=== PATIENT | male | born 1965 | race Caucasian/White ===

== ENCOUNTER 2021-01-07 02:31 | Emergency (ER) | payer SELFPAY ==
[2021-01-07 02:34] VITALS: BP 167/88; PULSE 110; RESP 18; TEMP 38; O2SAT 92; BMI 27.9
--- NOTE | 2021-01-07 02:38 | XR_ITS ---
WS: [id number] PORTABLE CHEST HISTORY: Central chest pain and fever. COMPARISON: None available. Lung volumes are decreased. Mild haziness in opacifications at the lung bases probably due to poor in spiration and atelectasis. No pleural effusion or pneumothorax. Cardiac size: Normal. Mediastinum/Aorta: Ectatic thoracic aorta. No osseous abnormality seen. XR/XR chest 1V portable [id number] IMPRESSION: 1. Poor pulmonary expansion with atelectasis at the lung bases. 2. Ectatic thoracic aorta.
--- NOTE | 2021-01-07 02:38 | ECG_ITS ---
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 Measurements Intervals [place] Rate: 102 P: 4 NC: 144 QRS: 12 QRSD: 85 T: 45 QT: 318 QTc: 414 Interpretive Statements SINUS TACHYCARDIA POSSIBLE LEFT ATRIAL ENLARGEMENT [-0.1mV P WAVE IN V1/V2] No previous ECG available for comparison Electronically Signed On 01-07-2021 17:22:36 CDT by Tammi Lang M.D. [id number] f
--- NOTE | 2021-01-07 02:40 | W.ED.CHESTPA ---
HPI - Chest Pain General: Chief Complaint: Chest Pain Stated Complaint: CP Time Seen by Provider: 01/07/21 02:38 Source: patient and EMS Mode of arrival: EMS Limitations: no limitations History of Present Illness: HPI narrative: 55-year-old male has a history of heart disease with stents placed back in 2012. Patient states that starting tonight roughly an hour to hour and a half ago he started having right-sided chest pain that was a pressure type pain with some shortness of breath. He states he had a cough over the last 1 to 2 days. EMS gave patient nitro and aspirin he states his pain is since resolved. He denies any worsening improving factors currently. He denies any fever. Associated symptoms: Deny abdominal pain, fever(s), nausea or vomiting Review of Systems Const: Denies: fever(s), chills, body aches or change in appetite Eyes: Denies: blurry vision or eye discomfort ENMT: Denies: throat pain or dental pain Card: Reports: chest pain Resp: Reports: non-productive cough GI: Denies: abdominal pain, nausea, vomiting or diarrhea : Denies: dysuria Musc: Denies: neck pain or back pain Skin/Breast: Denies: rash Neuro: Denies: headache(s) Psych: Denies: depression Socrates/Lymph: Denies: easy bruising All/Imm: Denies: urticaria Physical Exam Const: COMMON NORMALS: no acute distress, patient oriented x3 and healthy appearing HENMT: COMMON NORMALS: normocephalic and atraumatic HEAD & SCALP: normocephalic and atraumatic Eye: COMMON NORMALS: Equal, round and reactive pupils present and EOMs intact bilaterally PUPIL: Yes Equal, round and reactive pupils present Neck/C-Spine: COMMON NORMALS: full ROM and supple Chest: COMMONS NORMALS: normal inspection of the chest and normal palpation of entire chest wall Resp: COMMON NORMALS: normal respiratory effort, No retractions, No use of accessory muscles and clear to auscultation bilaterally AUSCULTATION: clear to auscultation bilaterally Cardio: COMMON NORMALS: regular rate, regular rhythm and No murmurs present (Cardio) RATE: regular rate RHYTHM: regular rhythm GI: COMMON NORMALS: Normal to inspection, nondistended, normoactive bowel sounds present, Soft to palpation, non-tender and no masses PALPATION: Yes Soft to palpation Extremity: COMMON NORMALS: normal to inspection and full ROM Neuro: COMMON NORMALS: patient oriented x3, moves all extremities and no focal motor deficits Psych: COMMON NORMALS: mental status grossly normal, Normal thought process present and cooperative THOUGHT PROCESS: Normal thought process present Skin: COMMON NORMALS: no rashes or lesions noted and no wounds GENERAL SKIN EXAM: no rashes or lesions noted Course Vital Signs: Vital signs: Vital Signs Temperature 100.4 F H 01/07/21 02:34 Pulse Rate 77 01/07/21 05:40 Respiratory Rate 22 H 01/07/21 05:40 Blood Pressure 130/80 01/07/21 05:40 Pulse Oximetry 93 01/07/21 05:40 MDM - Chest Pain MDM Narrative: Medical decision making narrative: Carlos presents with chest pains atypical in nature. Believe is likely from his upper respiratory infection and cough. His CT showed no signs of pneumonia. He refused a Covid test. Patient's repeat troponin here shows no acute abnormality has no signs of pulmonary embolism. He is requesting discharge. I feel he is stable for discharge. He is to follow-up his PCP in 3 to 4 days return to ER if worsening. He understands agrees to plan. Lab Data: Labs: Lab Results 01/07/21 01/07/21 01/07/21 Range/Units 02:47 02:47 02:47 WBC 11.9 H (4.0-10.0) 10^3/ uL RBC 4.85 (4.1-5.3) 10^6/u L Hgb 14.9 (11.7-16.6) g/dL Hct 44.3 (42.0-52.0) % MCV 91.3 (80-94) fL MCH 30.7 (28.0-34.0) pg MCHC 33.6 (30.0-36.0) g/dL RDW 12.6 (12.1-15.1) % Plt Count 328 (130-400) 10^3/c mm MPV 9.7 (7.4-10.4) fL Neut % (Auto) 81.8 % Lymph % (Auto) 8.5 % Gage % (Auto) 7.8 % Eos % (Auto) 0.6 % Baso % (Auto) 0.4 % Neut # (Auto) 9.77 H (1.8-7.7) 10^3/u L Lymph # (Auto) 1.0 (0.8-4.8) 10^3/u L Gage # (Auto) 0.9 (0.2-0.9) 10^3/u L Eos # (Auto) 0.1 (0.0-0.8) 10^3/u L Baso # (Auto) 0.1 (0.0-0.1) 10^3/u L Nucleated RBC % (a uto) 0 % Nucleated RBCs # 0.0 /100WBC D-Dimer 3.44 H (0-0.59) ug/mIFE U Sodium 133 L (136-145) mmol/L Potassium 4.0 (3.5-5.1) mmol/L Chloride 98 (98-107) mmol/L Carbon Dioxide 23 (22-29) mmol/L Anion Gap 16.0 (5-19) BUN 13 (6-20) mg/dL Creatinine 0.7 (0.7-1.2) mg/dL GFR Calculation 116.7 (90-130) mL/min Glucose 159 H (65-115) mg/dL Calculated Osmolal ity 279 L (285-295) mOsm/k g Calcium 8.9 (8.5-10.5) mg/dL Total Bilirubin 0.7 (0.15-1.2) mg/dL AST 35 (0-40) U/L ALT 46 H (0-41) U/L Alkaline Phosphata se 50 (40-130) IU/L Troponin T Baselin e (0-15) ng/L Troponin T 120 Min [place] (0-15) ng/L Delta Troponin T (0-10) ABS# NT-Pro-B Natriuret Pep 121 (0-125) pg/mL Total Protein 5.9 L (6.6-8.7) g/dL Albumin 3.6 (3.5-5.2) g/dL Globulin 2.3 (1.3-4.6) g/dL 01/07/21 01/07/21 Range/Units 02:47 04:45 WBC (4.0-10.0) 10^3/ uL RBC (4.1-5.3) 10^6/u L Hgb (11.7-16.6) g/dL Hct (42.0-52.0) % MCV (80-94) fL MCH (28.0-34.0) pg MCHC (30.0-36.0) g/dL RDW (12.1-15.1) % Plt Count (130-400) 10^3/c mm MPV (7.4-10.4) fL Neut % (Auto) % Lymph % (Auto) % Gage % (Auto) % Eos % (Auto) % Baso % (Auto) % Neut # (Auto) (1.8-7.7) 10^3/u L Lymph # (Auto) (0.8-4.8) 10^3/u L Gage # (Auto) (0.2-0.9) 10^3/u L Eos # (Auto) (0.0-0.8) 10^3/u L Baso # (Auto) (0.0-0.1) 10^3/u L Nucleated RBC % (a uto) % Nucleated RBCs # /100WBC D-Dimer (0-0.59) ug/mIFE U Sodium (136-145) mmol/L Potassium (3.5-5.1) mmol/L Chloride (98-107) mmol/L Carbon Dioxide (22-29) mmol/L Anion Gap (5-19) BUN (6-20) mg/dL Creatinine (0.7-1.2) mg/dL GFR Calculation (90-130) mL/min Glucose (65-115) mg/dL Calculated Osmolal ity (285-295) mOsm/k g Calcium (8.5-10.5) mg/dL Total Bilirubin (0.15-1.2) mg/dL AST (0-40) U/L ALT (0-41) U/L Alkaline Phosphata se (40-130) IU/L Troponin T Baselin e 18 H (0-15) ng/L Troponin T 120 Min [place] 13.08 (0-15) ng/L Delta Troponin T -4.92 L (0-10) ABS# NT-Pro-B Natriuret Pep (0-125) pg/mL Total Protein (6.6-8.7) g/dL Albumin (3.5-5.2) g/dL Globulin (1.3-4.6) g/dL Imaging Data^: CT Chest: Attestation: I personally reviewed and interpreted this imaging study as follows: Radiologist's impression: [employer] [place] [address] CT Scan Report Signed Patient: Carlos Anne Unit #: [id number] : 1965 Age/Sex: 55 / M ADM Date: 01/07/21 Loc: ER Room/Bed: Attending Dr: Ordering Provider/Ordering MD: Gala Pickett MD Date of Service: 01/07/21 Procedure(s): CT angio chest PE protcl [id number] Accession Number(s): [id number] Report Number: [id number] PROCEDURE INFORMATION: Exam: CT Angiography Chest With Contrast Exam date and time: 01/07/2021 3:16 AM Age: 55 years old Clinical indication: Pain and abnormal findings; Abnormal diagnostic tests; Elevated d-dimer; Shortness of breath; Prior surgery; Surgery type: Cardiac stent; Patient HX: Central chest pressure with SOB and elevated d dimer. ; Additional info: RO pe TECHNIQUE: Imaging protocol: Computed tomographic angiography of the chest with contrast. 3D rendering (Not supervised by radiologist): MIP and/or 3D reconstructed images were created by the technologist. Radiation optimization: All CT scans at this facility use at least one of these dose optimization techniques: automated exposure control; mA and/or kV adjustment per patient size (includes targeted exams where dose is matched to clinical indication); or iterative reconstruction. Contrast material: OMNI 350; Contrast volume: 75 ml; Contrast route: INTRAVENOUS (IV); COMPARISON: CR XR chest 1V portable [id number] 01/07/2021 2:44 AM RADIATION DOSE METRICS: Total DLP (mGy-cm): 875.78 FINDINGS: Pulmonary arteries: Normal. No pulmonary emboli. Aorta: Ectatic ascending aorta measuring 3.8 cm in diameter. Lungs: There is patchy enhancing atelectasis in the right lung base, with elevation of the right hemidiaphragm. No consolidation identified. Pleural spaces: Unremarkable. No pneumothorax. No pleural effusion. Heart: Normal heart size. Coronary atherosclerotic calcifications seen. Trace pericardial effusion noted. Lymph nodes: Unremarkable. No enlarged lymph nodes. Bones/joints: Unremarkable. No acute fracture. Soft tissues: Unremarkable. CT/CT angio chest PE protcl [id number] IMPRESSION: 1. No pulmonary embolus or other acute pathology in the chest. 2. Ectatic ascending aorta. EKG Data^: EKG 1: Attestation: I personally reviewed and interpreted this EKG as follows: EKG interpretation date: 01/07/21 EKG interpretation time: 02:40 Interpretation: sinus tach hr [address] or t wave abnormalities qrs 85 qtc 376 Discharge Plan Discharge Patient Disposition: Home Clinical Impression: Upper respiratory infection Qualifiers: URI type: unspecified URI Qualified Code(s): J06.9 - Acute upper respiratory infection, unspecified Chest pain Qualifiers: Chest pain type: unspecified Qualified Code(s): R07.9 - Chest pain, unspecified Condition: Stable Discharge Orders: Discharge ED (Routine); Ordered 01/07/21 Ordered By: Gala Pickett Referrals: Shailesh Flores M.D [Physician] - 1-3 days Discharge Diet: Advance as tolerated Discharge Activity: Resume usual activity Patient Instructions: Opioid Safety Coding Level of Care Code ED Internet Marketing Consultant for Chg Fwd Exam Comprehensive
[2021-01-07 02:46] VITALS: BP 145/84; PULSE 95; RESP 30; O2SAT 91
[2021-01-07 02:50] VITALS: PULSE 102
[2021-01-07 02:55] LABS: Basophils # 0.1 10^3/uL (0.0-0.1); Basophils % 0.4 %; Eosinophils # 0.1 10^3/uL (0.0-0.8); Eosinophils % 0.6 %; Hematocrit 44.3 % (42.0-52.0); Hemoglobin 14.9 g/dL (11.7-16.6); Lymphocytes % 8.5 %; Mean Corpuscular HGB Conc 33.6 g/dL (30.0-36.0); Mean Corpuscular Hemoglobin 30.7 pg (28.0-34.0); Mean Corpuscular Volume 91.3 fL (80-94); Mean Platelet Volume 9.7 fL (7.4-10.4); Monocytes # 0.9 10^3/uL (0.2-0.9); Monocytes % 7.8 %; Neutrophils # 9.77 10^3/uL (1.8-7.7); Neutrophils % 81.8 %; Nucleated Red Blood Cells % 0 %; Platelet Count 328 10^3/cmm (130-400); Red Blood Count 4.85 10^6/uL (4.1-5.3); Red Cell Distribution Width 12.6 % (12.1-15.1); White Blood Count 11.9 10^3/uL (4.0-10.0)
[2021-01-07] MEDS: acetaminophen 500 mg Tablet 1000 MG PO (03:01)
--- NOTE | 2021-01-07 03:05 | PC.NURSE ---
patient refused covid and flu swabs at this time
[2021-01-07 03:11] LABS: Troponin(5th) Baseline 18 ng/L (0-15)
[2021-01-07 03:12] LABS: D Dimer 3.44 ug/mIFEU (0-0.59)
--- NOTE | 2021-01-07 03:13 | CTR_ITS ---
PROCEDURE INFORMATION: Exam: CT Angiography Chest With Contrast Exam date and time: 01/07/2021 3:16 AM Age: 55 years old Clinical indication: Pain and abnormal findings; Abnormal diagnostic tests; Elevated d-dimer; Shortness of breath; Prior surgery; Surgery type: Cardiac stent; Patient HX: Central chest pressure with SOB and elevated d dimer. ; Additional info: RO pe TECHNIQUE: Imaging protocol: Computed tomographic angiography of the chest with contrast. 3D rendering (Not supervised by radiologist): MIP and/or 3D reconstructed images were created by the technologist. Radiation optimization: All CT scans at this facility use at least one of these dose optimization techniques: automated exposure control; mA and/or kV adjustment per patient size (includes targeted exams where dose is matched to clinical indication); or iterative reconstruction. Contrast material: OMNI 350; Contrast volume: 75 ml; Contrast route: INTRAVENOUS (IV); COMPARISON: CR XR chest 1V portable [id number] 01/07/2021 2:44 AM RADIATION DOSE METRICS: Total DLP (mGy-cm): 875.78 FINDINGS: Pulmonary arteries: Normal. No pulmonary emboli. Aorta: Ectatic ascending aorta measuring 3.8 cm in diameter. Lungs: There is patchy enhancing atelectasis in the right lung base, with elevation of the right hemidiaphragm. No consolidation identified. Pleural spaces: Unremarkable. No pneumothorax. No pleural effusion. Heart: Normal heart size. Coronary atherosclerotic calcifications seen. Trace pericardial effusion noted. Lymph nodes: Unremarkable. No enlarged lymph nodes. Bones/joints: Unremarkable. No acute fracture. Soft tissues: Unremarkable. CT/CT angio chest PE protcl [id number] IMPRESSION: 1. No pulmonary embolus or other acute pathology in the chest. 2. Ectatic ascending aorta. Radiation Dose CTDIVOL = (mGy): DLP = 875.78 (mGy-cm)
[2021-01-07 03:19] LABS: Alanine Aminotransferase 46 U/L (0-41); Albumin Level 3.6 g/dL (3.5-5.2); Alkaline Phosphatase 50 IU/L (40-130); Aspartate Amino Transferase 35 U/L (0-40); Blood Urea Nitrogen 13 mg/dL (6-20); Calcium 8.9 mg/dL (8.5-10.5); Carbon Dioxide 23 mmol/L (22-29); Chloride 98 mmol/L (98-107); Globulin 2.3 g/dL (1.3-4.6); Glomerular Filtration Rate 116.7 mL/min (90-130); Glucose 159 mg/dL (65-115); NT Pro B Type Natriuretic Pept 121 pg/mL (0-125); Osmolality Calculated 279 mOsm/kg (285-295); Sodium 133 mmol/L (136-145); Total Bilirubin 0.7 mg/dL (0.15-1.2); Total Protein 5.9 g/dL (6.6-8.7)
[2021-01-07] MEDS: iohexol 350 mg/mL 100 mL Btl IV (03:39)
[2021-01-07 04:10] VITALS: BP 128/85; PULSE 88; O2SAT 92
[2021-01-07 04:56] VITALS: BP 123/75; PULSE 85; RESP 19; O2SAT 92
[2021-01-07 05:09] LABS: Troponin 5 2HR 13.08 ng/L (0-15)
[2021-01-07 05:40] VITALS: BP 130/80; PULSE 77; RESP 22; O2SAT 93
--- NOTE | 2021-01-07 12:36 | DCPLANNER ---
Addendum entered by Ness Hood 01/08/21 11:32: transaction advisory services manager called patient at phone number [phone] - unable to speak with patient, left a voicemail for patient to return residential case manager for appointment information. transaction advisory services manager called phone number [phone], unable to speak with anyone at this time, a voicemail was left for patient to return nurse outreach case manager phone call for appointment information. Original Note: transaction advisory services manager had message to schedule a follow up appointment for patient with heart care. transaction advisory services manager called heart care, spoke with Mae, a follow up appointment is scheduled for Monday, January 11, 2021 at 3:[address] Duarte. transaction advisory services manager called patient at phone number [phone], unable to speak with patient at this time, a voicemail was left for patient to return nurse outreach case manager phone call.
--- NOTE | 2021-01-15 14:22 | DCPLANNER ---
Patient had a follow up appointment scheduled for 01.11.21 with [facility] - patient did not attend appointment.
== END 2021-01-07 05:40 | disposition home or self-care (01) ==
PROVIDERS: Emergency Provider Emergency Medicine
DX: R07.9 Chest pain, unspecified (principal); J06.9 Acute upper respiratory infection, unspecified
CPT/HCPCS: 71045; 71275; 80053; 83880; 84484; 85025; 85378; 93005; 99284; Q9967

== ENCOUNTER 2023-01-12 22:06 | Inpatient (IN) | payer OTHER, SELFPAY ==
[2023-01-12 22:06] VITALS: BP 133/84; PULSE 119; RESP 20; TEMP 36.4; O2SAT 95; BMI 28.4
--- NOTE | 2023-01-12 22:09 | ECG_ITS ---
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 Measurements Intervals [place] Rate: 60 P: -13 VT: 147 QRS: 106 QRSD: 102 T: 139 QT: 395 QTc: 396 Interpretive Statements SINUS RHYTHM RIGHT AXIS DEVIATION [QRS AXIS > 100] ST DEPRESSION, CONSIDER SUBENDOCARDIAL INJURY [0.1+ mV ST DEPRESSION] Compared to ECG 01/07/2021 02:40:15 Right-axis deviation now present ST (T wave) deviation now present Sinus tachycardia no longer present Electronically Signed On 01-12-2023 23:38:32 CDT by Shailesh Flores M.D. [id number]
--- NOTE | 2023-01-12 22:14 | XACV_ITS ---
Exam Room: ED.ROOM Ht: 178 cm Wt: 90 kg BSA: 2.12 m2 Gender: Male : 1965 Exam Priority: Routine Indication(s): - ST changes Procedure(s): Procedure Description: Diagnostic procedure Procedure Description: PCI procedure Procedure Description: Left Heart Catheterization Procedure Description: Left ventriculography Procedure Description: Drug Eluting Coronary Stent Procedure Description: PTCA Procedure Description: Cutting Balloon Procedure Description: Miscellaneous Procedure Description: ACT Procedure Description: Coronary Angiography Diagnostic Cath Status: Emergency Diagnostic Findings * INDICATION: 57 year old male with past medical history of hypertension, coronary artery disease has presented with 4 to 5 hours of chest pain. He says it is severe and substernal. According to patient he has been having on and off chest discomfort episodes for the last 4 to 5 days. However today evening was constant and severe. EKG shows inferior leads ST elevations. Cardiac label stamper has been emergently activated. * Left Anterior Descending has mild to moderate luminal irregularities. * Mid Right Coronary Artery to Distal Right Coronary Artery: Total thrombotic occlusion, FABIENNE 0 flow. This is culprit vessel for ST elevation [place]. PLV branch has diffuse disease.. * Proximal Circumflex: severe, calcified 70-80% stenosis, FABIENNE: 3 flow. * Left Main has no disease. * Coronary angiography shows right dominance. PCI Status: Emergency PCI Indication: Immediate PCI for STEMI Interventional Findings * PROCEDURE DETAIL: We engaged RCA with JR4 guide catheter. 0.014 run-through guidewire was used to cross totally occluded segment of the mid to distal RCA and was put in distal vessel. We predilated the stenosis with 2.25 x 12 mm semicompliant balloon. This did not expand the vessel fully and it was calcified artery. We used 3.0 x 15 mm score Flex scoring balloon to dilate the lesion. This was followed by placement of 3.0 x 15 mm resolute [place] drug-eluting stent. At this time final angiogram was performed that showed excellent stent expansion, no residual stenosis and FABIENNE-3 flow. Guidewire and guide catheter were removed. Patient left the Hospice Nurse Practitioner in a stable condition. * Mid Right Coronary Artery to Distal Right Coronary Artery: 100% stenosis treated with a AB TREK 2.50X12 RX BALLOON, Scoreflex 3.0x15mm Scoring Balloon, MDT R HELADIO 3.0X15 ROSE, and Balloon. 0% residual stenosis, FABIENNE: 3 flow. Conclusions 1. Total thrombotic occlusion of mid to distal RCA 2. s/p successful revascularization with ROSE x1. 3. Severe 70 to 80% calcified stenosis of proximal left circumflex artery. 4. Mild left ventricular systolic dysfunction. Ejection fraction of 40%. 5. Mid Right Coronary Artery to Distal Right Coronary Artery was treated with a Balloon, Balloon, Drug Eluting Stent, and Balloon. Recommendations * Transfer to ICU. * Aggrastat drip for 6 hours. * Dual antiplatelet therapy with aspirin and Plavix for at least 1 year. * We will stage PCI of proximal left circumflex artery stenosis in 4 weeks.. * Outpatient cardiology follow-up in 2 weeks. Interventional RX Recommendation: PCI w/o planned CABG Diagnostic RX Recommendation: PCI w/o planned CABG Anticoagulation: Heparin Ventriculography Ejection Fraction: 40.0 % Pressures Phase:Rest AO : 90 / 66 ( 79 ) @ 6:21:26 PM 78 / 59 ( 69 ) @ 6:21:26 PM 80 / 63 ( 73 ) @ 6:21:26 PM 98 / 75 ( 87 ) @ 6:21:26 PM 154 / 81 ( 112 ) @ 6:21:26 PM 154 / 86 ( 116 ) @ 6:21:26 PM LV : 126 / -7 / 19 @ 6:21:26 PM 156 / 23 / 48 @ 6:21:26 PM 155 / 16 / 43 @ 6:21:26 PM Valves Phase:DefaultPhase AV : 8.0 @ 11:21:26 PM 8.0 @ 11:21:26 PM AV Mean Gradient: 11.0 @ 11:21:26 PM 11.0 @ 11:21:26 PM Clinical Evaluation EBL: 5mL-10mL Procedural Details Procedure Consent Obtained. Admit Source: Emergency department. Pre-Procedure Time Out. Identified patient by full name and date of as verbalized by the patient/guarantor. Does the consent match the physician's order: Yes. Accurate & Complete Informed Consent: Yes. Inpatient/Outpatient History & Physical on Chart: N/A Emergent. If H&P is completed, is and addenduem needed: N/A Emergent; If yes, is the addendum complete: N/A Emergent. Visualize and Verify Site with Patient/Guarantor: N/A. Relevant Radiology Images available: N/A. Pre-op teaching completed and patient verbalized understanding. The risks, benefits, and alternatives of sedation and/or procedure were discussed by physician. The patient agrees to continue. Procedure started. [facility] Clinical Fraility Score: 3: Managing Well. Hospice Nurse Practitioner Indications: New Onset Angina. Chest Pain Symptom Assessment: Typical Angina Symptoms. Correct patient, site and procedure confirmed by cath team. Current diagnosis: STEMI. PERRLA. Strong, equal hand calculator operator bilaterally. Lungs clear x 5 lobes. IV Site on Arrival: 20 gauge in the left anticubital. IV Fluids: 0.9% NaCl at KVO. 0 mL infused prior to label stamper. Pre Procedural Pulses: right radial was 2+. Pre Procedural Pulses: bilateral dorsalis pedis was 2+. Oxygen started at 2liters/min via nasal canula. right groin was prepped with chloroprep then draped in the usual sterile fashion. right radial was prepped with chloroprep then draped in the usual sterile fashion. Baseline sample Acquired. HR: 61 BPM. Physician notified. Physician arrived. Physician scrubbed in. Immediate Pre-Procedure Time Out. Correct Patient: Yes; Correct Procedure: Yes; Correct Site: Yes; Correct Patient Position: Yes; Correct Supplies: Yes; Dried Flammable Prep: Yes; Blood Products Available: N/A;. Lidocaine 1% infiltrated to the right radial. Arterial access obtained. 6 omani JR 4 guide catheter was inserted over the wire. Multiple views taken of right coronary artery. Runthrough guidewire was advanced through the guide catheter to lesion in the mid RCA. Balloon inserted to lesion in the mid RCA. Inflation number : 1 A AB TREK 2.50X12 RX BALLOON was prepped and advanced across the Mid RCA , then inflated to 12 KOFI for 0:06 seconds. Inflation number: 2 The AB TREK 2.50X12 RX BALLOON was reinflated across the Mid RCA, to 12 KOFI for 0:17 seconds. Inflation number: 3 The AB TREK 2.50X12 RX BALLOON was reinflated across the Mid RCA, to 14 KOFI for 0:17 seconds. Balloon out. Results checked. Balloon inserted to lesion in the mid RCA. Inflation number : 4 A Scoreflex 3.0x15mm Scoring Balloon was prepped and advanced across the Mid RCA , then inflated to 12 KOFI for 0:20 seconds. Inflation number: 5 The Scoreflex 3.0x15mm Scoring Balloon was reinflated across the Mid RCA, to 12 KOFI for 0:21 seconds. Balloon out. Results checked. Stent inserted to lesion in the mid RCA. Unable to cross lesion with stent. Intact stent removed over Runthrough wire. Guideliner inserted. Stent inserted to lesion in the mid RCA. Inflation Number : 6 A MDT R HELADIO 3.0X15 ROSE -Lot Number# [id number] Exp 01/05/2025 was prepped and advanced across the Mid RCA. The stent was deployed at 12 KOFI for 0:24 seconds. Results checked. Stent balloon out over wire. Inflation number : 1 A MDT NC EUPHORA RX [id number] BALLOON was prepped and advanced across the Dist RCA , then inflated to 8 KOFI for 0:12 seconds. Inflation number: 2 The MDT NC EUPHORA RX [id number] BALLOON was reinflated across the Dist RCA, to 8 KOFI for 0:09 seconds. Balloon inserted to lesion in the distal RCA. Inflation number: 7 The MDT NC EUPHORA RX [id number] BALLOON was reinflated across the Mid RCA, to 12 KOFI for 0:15 seconds. Inflation number: 8 The MDT NC EUPHORA RX [id number] BALLOON was reinflated across the Mid RCA, to 18 KOFI for 0:19 seconds. Balloon out. Results checked. Guideliner removed. Wire out. Guide catheter out. ACT drawn. Results 301 seconds. Therapeutic limits - pre-heparin administration 90-150 seconds and monitoring heparin during a vascular procedure >250 seconds. A 5 omani JL3.5 catheter in over wire. Multiple views taken of left coronary artery. Current Diagnosis : STEMI. PCI Indication : Immediate PCI for STEMI. Catheter out. A 5 omani Angled Pig catheter in over wire. EDP Sample taken: LV 126/-8,19; HR: 80 BPM; SpO2: 95%. LV gram performed in SZYMANSKI @ 10 mL/second for a total of 30 mL. EDP Sample taken: LV 156/23,48; HR: 85 BPM; SpO2: 95%. Pullback taken: LV 155/16,43; AO 154/81(112); Mean: 11mmHg, Peak to Peak: 8mmHg, SEP: 7sec/min; HR: 83 BPM; SpO2: 96%. Catheter out. A TR Band was successful obtaining hemostatsis at the Right Radial artery insertion site. Post Procedure: Pulses reassessed and unchanged. PERRLA. Strong, equal hand calculator operator bilaterally. No VTE prophylaxis required. Medication's Wasted: Nitro = 49.8 mg. Post-op diagnosis: Total Thrombotic Occlusion of RCA. Medication's Wasted: Other = Fentanyl 50 mcg. Medication's Wasted: Lidocaine 1% = 3 mL. Total IV fluids: 94 mL. PCI Indication: STEMI. Complications: none. Estimated blood loss: 5mL-10mL. Responsiveness - Normal response to verbal stimuli; alert and oriented, PERRLA. Airway - Unaffected, no intervention required; spontaneous ventilation. Circulation: W/N/L, pulses unchanged. Nausea/Vomiting: No. Procedure completed. Patient transferred by bed to ICU. Vital chart was stopped. Access Site Site: Right Radial artery Sheath Size: 6 Fr Hemostasis Method: TR Band Hemostasis Success: Successful Procedure Medications Start: 10:34 PM Stop: 10:34 PM Medication: Versed Amount: 1 mg Route: I.V. Start: 10:34 PM Stop: 10:34 PM Medication: Fentanyl Amount: 50 mcg Route: I.V. Start: 10:39 PM Stop: 10:39 PM Medication: Heparin Amount: 5000 units Route: I.V. Start: 10:41 PM Stop: 10:41 PM Medication: Versed Amount: 1 mg Route: I.V. Start: 10:57 PM Stop: 10:57 PM Medication: Heparin Amount: 1000 units Route: I.V. Start: 11:04 PM Stop: 11:04 PM Medication: Aggrastat 12.5 mg/250 mL Amount: 45 ml Route: I.V. bolus Start: 11:04 PM Stop: 11:04 PM Medication: Aggrastat 12.5 mg/250 mL Amount: 16.2 ml/hr Route: I.V. drip Start: 10:37 PM Stop: 10:37 PM Medication: Nitrogylcerin Amount: 200 mcg Route: I.A. Start: 11:19 PM Stop: 11:19 PM Medication: Plavix Amount: 300 mg Route: P.O. I, the attending physician, have reviewed and verified all procedure medications. Yes, all medications given per verbal order Report Signatures Finalized by Shailesh Flores MD on 01/25/2023 12:55 PM
[2023-01-12] MEDS: morphine 4 mg/mL SDV 1 mL IVP (22:16)
[2023-01-12] MEDS: ondansetron 2 mg/ML SDV 2 mL 4 MG IVP (22:16)
[2023-01-12 22:22] LABS: Basophils # 0.1 10^3/uL (0.0-0.1); Basophils % 1.1 %; Eosinophils # 0.4 10^3/uL (0.0-0.8); Eosinophils % 4.3 %; Hematocrit 44.1 % (42.0-52.0); Hemoglobin 15.2 g/dL (11.7-16.6); Lymphocytes # 3.1 10^3/uL (0.8-4.8); Lymphocytes % 36.4 %; Mean Corpuscular HGB Conc 34.5 g/dL (30.0-36.0); Mean Corpuscular Hemoglobin 31.4 pg (28.0-34.0); Mean Corpuscular Volume 91.1 fl (80-94); Mean Platelet Volume 9.8 fL (7.4-10.4); Monocytes # 1.2 10^3/uL (0.2-0.9); Monocytes % 13.7 %; Neutrophils # 3.75 10^3/uL (1.8-7.7); Nucleated Red Blood Cells % 0 %; Platelet Count 261 10^3/cmm (130-400); Red Blood Count 4.84 10^6/uL (4.1-5.3); White Blood Count 8.5 10^3/uL (4.0-10.0)
[2023-01-12] MEDS: heparin 5,000 unit/mL INJ 1 mL 4000 UNIT IVP (22:22)
[2023-01-12] MEDS: clopidogrel 300 mg Tablet PO (22:22)
[2023-01-12] MEDS: sodium chloride 0.9% 1,000 ML 999 ML IV (22:23)
--- NOTE | 2023-01-12 22:24 | PM.HP ---
Providers/Chief Complaint Admitting Physician: Shailesh Flores MD/ Interventional Cardiology Chief Complaint: STEMI History of Present Illness Carlos Anne is a 57 year old male with past medical history of hypertension, coronary artery disease has presented with 4 to 5 hours of chest pain. He says it is severe and substernal. According to patient he has been having on and off chest discomfort episodes for the last 4 to 5 days. However today evening was constant and severe. EKG shows inferior leads ST elevations. Cardiac lab tester has been emergently activated. Review of Systems Const: Denies: fever(s), chills, body aches or change in appetite Eyes: Denies: blurry vision or eye discomfort ENMT: Denies: throat pain or dental pain Card: Reports: chest pain Resp: Reports: dyspnea GI: Denies: abdominal pain, nausea, vomiting or diarrhea : Denies: dysuria Musc: Denies: neck pain or back pain Skin/Breast: Denies: rash Neuro: Denies: headache(s) Psych: Denies: depression Socrates/Lymph: Denies: easy bruising All/Imm: Denies: urticaria PFSH Acute PFSH: Medical History Coronary artery disease Social History Substance/Drug Use: never Vitals/I&O/Wt Last Vital Signs Temp 97.6 F 01/12/23 22:06 Pulse 119 H 01/12/23 22:06 Resp 20 H 01/12/23 22:06 BP 133/84 01/12/23 22:06 Pulse Ox 95 01/12/23 22:06 O2 Del Method 01/12/23 22:06 Weight last 48 hrs Weight 198 lb Physical Exam Narrative: GENERAL: Patient is alert, awake and oriented x3. [] NECK: No jugular vein distension. [] HEENT: No cyanosis. No icterus. No pallor. [] HEART: Regular S1 and S2. No murmur, rub or gallop. [] LUNGS: Clear to auscultate bilaterally. [] CENTRAL NERVOUS SYSTEM: Grossly nonfocal. [] EXTREMITIES: Lower extremities with no edema Data 01/12/23 22:15 01/12/23 22:15 A&P Assessment and plan (1) ST elevation myocardial infarction (STEMI): (2) Coronary artery disease: (3) Hypertension: Plan Patient presentation is consistent with inferior wall ST elevation AL. Cardiac Coupon And Bond Collection Clerk has been emergently activated and patient will undergo coronary angiogram. Aspirin and Plavix loaded. Heparin bolus given. We will need high intensity statin therapy. We will order echocardiogram Post procedure will go to ICU Attestations Medical Necessity Statement*: Care expected to cross 2 midnights. Coding Level of Care Code Acute Code for [facility] Diagnoses ST elevation myocardial infarction (STEMI) I21.3 Coronary artery disease I25.10 Hypertension I10
[2023-01-12] MEDS: sodium chloride 0.9% 500 ML 999 ML IV (22:25)
--- NOTE | 2023-01-12 22:26 | W.ED.CHESTPA ---
HPI - Chest Pain General: Chief Complaint: Chest Pain Stated Complaint: STEMI Time Seen by Provider: 01/12/23 22:08 Source: patient and EMS Mode of arrival: EMS Limitations: no limitations History of Present Illness: 57-year-old male has a history of coronary disease states he is having chest pain this evening take an aspirin at home he has had 3 nitro his pain is down to 5 out of 10 but still having some pain he had some dyspnea feeling nauseous no vomiting denies any fevers. Associated symptoms: Deny abdominal pain, dyspnea, fever(s), nausea or vomiting Review of Systems Const: Denies: fever(s), chills, body aches or change in appetite Eyes: Denies: blurry vision or eye discomfort ENMT: Denies: throat pain or dental pain Card: Reports: chest pain Resp: Denies: dyspnea GI: Denies: abdominal pain, nausea, vomiting or diarrhea : Denies: dysuria Musc: Denies: neck pain or back pain Skin/Breast: Denies: rash Neuro: Denies: headache(s) Psych: Denies: depression Socrates/Lymph: Denies: easy bruising All/Imm: Denies: urticaria PFSH ED PFSH: Medical History Coronary artery disease Social History (Updated 01/12/23 @ 22:27 by Gala Pickett MD) Substance/Drug Use: never Physical Exam Const: COMMON NORMALS: patient oriented x3 GENERAL APPEARANCE: ill appearing HENMT: COMMON NORMALS: normocephalic and atraumatic HEAD & SCALP: normocephalic and atraumatic Eye: COMMON NORMALS: Equal, round and reactive pupils present and EOMs intact bilaterally PUPIL: Yes Equal, round and reactive pupils present Neck/C-Spine: COMMON NORMALS: full ROM and supple Chest: COMMONS NORMALS: normal inspection of the chest and normal palpation of entire chest wall Resp: COMMON NORMALS: normal respiratory effort, No retractions, No use of accessory muscles and clear to auscultation bilaterally AUSCULTATION: clear to auscultation bilaterally Cardio: COMMON NORMALS: regular rate, regular rhythm and No murmurs present (Cardio) RATE: regular rate RHYTHM: regular rhythm GI: COMMON NORMALS: Normal to inspection, nondistended, normoactive bowel sounds present, Soft to palpation, non-tender and no masses PALPATION: Yes Soft to palpation Extremity: COMMON NORMALS: normal to inspection and full ROM Neuro: COMMON NORMALS: patient oriented x3, moves all extremities and no focal motor deficits Psych: COMMON NORMALS: mental status grossly normal, Normal thought process present and cooperative THOUGHT PROCESS: Normal thought process present Skin: COMMON NORMALS: no rashes or lesions noted and no wounds GENERAL SKIN EXAM: no rashes or lesions noted Course Vital Signs: Vital signs: Vital Signs Temperature 97.6 F 01/12/23 22:06 Pulse Rate 119 H 01/12/23 22:06 Respiratory Rate 20 H 01/12/23 22:06 Blood Pressure 133/84 01/12/23 22:06 Pulse Oximetry 95 01/12/23 22:06 Oxygen Delivery Me thod 01/12/23 22:06 MDM - Chest Pain Medical Decision Making Patient presents for chest pain EKG is concerning for STEMI STEMI was alerted in the field by EMS of spoke to Dr. Sarabia who is here and is gone take patient to the Tax Services Professional at this time Lab Data 01/12/23 22:15 01/12/23 22:15 Laboratory Results WBC 8.5 10^3/uL (4.0-10.0) 01/12/23 22:15 RBC 4.84 10^6/uL (4.1-5.3) 01/12/23 22:15 Hgb 15.2 g/dL (11.7-16.6) 01/12/23 22:15 Hct 44.1 % (42.0-52.0) 01/12/23 22:15 MCV 91.1 fl (80-94) 01/12/23 22:15 MCH 31.4 pg (28.0-34.0) 01/12/23 22:15 MCHC 34.5 g/dL (30.0-36.0) 01/12/23 22:15 RDW 12.0 % (12.1-15.1) L 01/12/23 22:15 Plt Count 261 10^3/cmm (130-400) 01/12/23 22:15 MPV 9.8 fL (7.4-10.4) 01/12/23 22:15 Neut % (Auto) 44.0 % 01/12/23 22:15 Lymph % (Auto) 36.4 % 01/12/23 22:15 Porter % (Auto) 13.7 % 01/12/23 22:15 Eos % (Auto) 4.3 % 01/12/23 22:15 Baso % (Auto) 1.1 % 01/12/23 22:15 Neut # (Auto) 3.75 10^3/uL (1.8-7.7) 01/12/23 22:15 Lymph # (Auto) 3.1 10^3/uL (0.8-4.8) 01/12/23 22:15 Porter # (Auto) 1.2 10^3/uL (0.2-0.9) H 01/12/23 22:15 Eos # (Auto) 0.4 10^3/uL (0.0-0.8) 01/12/23 22:15 Baso # (Auto) 0.1 10^3/uL (0.0-0.1) 01/12/23 22:15 Nucleated RBC % (auto) 0 % 01/12/23 22:15 Nucleated RBCs # 0.0 /100WBC 01/12/23 22:15 Discharge Plan Discharge Patient Disposition: Admitted As Inpatient Clinical Impression: ST elevation myocardial infarction (STEMI) Coding Level of Care Code ED E Commerce Specialist for Jessica Roberts
[2023-01-12 22:28] VITALS: BP 131/80; PULSE 54; RESP 14; O2SAT 94
[2023-01-12 22:41] LABS: INR 0.98 (0.8-1.2)
[2023-01-12 22:42] LABS: Partial Thromboplastin Time 23.7 SECONDS (23.9-36.7)
[2023-01-12 22:47] LABS: Alanine Aminotransferase 45 U/L (0-41); Albumin Level 3.4 g/dL (3.5-5.2); Alkaline Phosphatase 56 U/L (40-130); Anion Gap 14.7 (5-19); Aspartate Amino Transferase 32 U/L (0-40); Blood Urea Nitrogen 8 mg/dL (6-20); Calcium 9.4 mg/dL (8.5-10.5); Carbon Dioxide 24 mmol/L (22-29); Chloride 99 mmol/L (98-107); Globulin 2.7 g/dL (1.3-4.6); Glomerular Filtration Rate 99.3 mL/min (90-130); Glucose 212 mg/dL (65-115); Lipase 22 U/L (13-60); Osmolality Calculated 283 mOsm/kg (285-295); Potassium 3.7 mmol/L (3.5-5.1); Sodium 134 mmol/L (136-145); Total Bilirubin 0.3 mg/dL (0.15-1.2); Total Protein 6.1 g/dL (6.6-8.7)
[2023-01-12 22:50] LABS: Troponin(5th) Baseline 76 ng/L (0-15)
[2023-01-12 22:57] LABS: NT Pro B Type Natriuretic Pept 80 pg/mL (0-125)
--- NOTE | 2023-01-12 23:30 | PC.NURSE ---
Admitted to ICU room 12 from pathology laboratory aides teacher via wheelchair. TR band to right wrist with 14mL air. No bleeding or hematoma noted to Right radial heart cath insertion site. No reports of chest pain or discomfort. Placed on equipment monitor phototypesetting and continuous pulse ox monitor. V/S stable at present time. No family present.
[2023-01-12 23:45] VITALS: BP 129/82; PULSE 82; RESP 18; TEMP 36.5; O2SAT 93
[2023-01-12] MEDS: sodium chloride 0.9% 1,000 ML 100 ML IV (23:46)
[2023-01-12 23:54] LABS: Chol HDL Ratio 5.76 mg/dL (1.0-5.00); Cholesterol 167 mg/dL (0-200); Estmated Average Glucose 154; HDL Cholesterol 29 mg/dL (60-100); LDL Cholesterol Calculated 86 mg/dL (50-129); LDL HDL Ratio 2.97 RATIO (0.00-3.22); Triglycerides 258 mg/dL (0-150)
[2023-01-13] VITALS (33 sets, daily range): BP systolic 108–159; BP diastolic 68–94; PULSE 36–85; RESP 12–25; TEMP 36.5–36.8; O2SAT 90–94; BMI 28.3
[2023-01-13 00:42] LABS: Basophils % 0.5 %; Eosinophils # 0.1 10^3/uL (0.0-0.8); Eosinophils % 1.4 %; Hematocrit 46.2 % (42.0-52.0); Hemoglobin 15.5 g/dL (11.7-16.6); Lymphocytes # 1.3 10^3/uL (0.8-4.8); Lymphocytes % 15.6 %; Mean Corpuscular HGB Conc 33.5 g/dL (30.0-36.0); Mean Corpuscular Hemoglobin 31.5 pg (28.0-34.0); Mean Corpuscular Volume 93.9 fl (80-94); Mean Platelet Volume 9.9 fL (7.4-10.4); Monocytes # 0.6 10^3/uL (0.2-0.9); Monocytes % 7.5 %; Neutrophils # 6.21 10^3/uL (1.8-7.7); Neutrophils % 74.3 %; Nucleated Red Blood Cells % 0 %; Platelet Count 227 10^3/cmm (130-400); Red Blood Count 4.92 10^6/uL (4.1-5.3); White Blood Count 8.4 10^3/uL (4.0-10.0)
[2023-01-13 01:04] LABS: Anion Gap 15.3 (5-19); Blood Urea Nitrogen 8 mg/dL (6-20); Calcium 9.3 mg/dL (8.5-10.5); Carbon Dioxide 23 mmol/L (22-29); Chloride 98 mmol/L (98-107); Glomerular Filtration Rate 115.8 mL/min (90-130); Glucose 201 mg/dL (65-115); Osmolality Calculated 278 mOsm/kg (285-295); Potassium 4.3 mmol/L (3.5-5.1); Sodium 132 mmol/L (136-145)
[2023-01-13 01:26] LABS: Troponin 5 2HR 275.9 ng/L (0-15); Troponin 5 2HR Delta 199.9 ABS# (0-10)
--- NOTE | 2023-01-13 01:47 | PC.NURSE ---
0032 -- removed 2mL air from R radial TR band 0042 -- removed 2mL air from R radial TR band 0052 -- removed 2mL air from R radial TR band 0102 -- removed 2mL air from R radial TR band 0112 -- removed 2mL air from R radial TR band 0122 -- removed 2mL air form R radial TR band 0132 -- removed 2mL air from R radial TR band. All air removed from TR band, no bleeding or hematoma noted. 0145 -- Removed TR band from R wrist. No bleeding or hematoma. Band-aid placed over puncture site.
--- NOTE | 2023-01-13 02:08 | ECG_ITS ---
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 Measurements Intervals [place] Rate: 68 P: 53 NH: 191 QRS: 60 QRSD: 103 T: 61 QT: 372 QTc: 397 Interpretive Statements SINUS RHYTHM Compared to ECG 01/12/2023 22:09:48 Right-axis deviation no longer present ST (T wave) deviation no longer present Electronically Signed On 01-13-2023 21:37:02 CDT by Rex Heath M.D. [id number]
[2023-01-13 04:39] LABS: Troponin 5 6HR 489.7 ng/L (0-15); Troponin 5 6HR Delta 413.7 ng/L (0-12)
[2023-01-13] MEDS: aspirin 81 mg EC Tablet PO (08:59)
[2023-01-13] MEDS: clopidogrel 75 mg Tablet PO (08:59)
[2023-01-13] MEDS: lisinopril 10 mg Tablet PO (08:59)
--- NOTE | 2023-01-13 11:36 | P.PN_ITS ---
Subjective Subjective: Patient had total thrombotic occlusion of the mid to distal RCA and underwent successful revascularization with ROSE x1. Feeling well. No chest pain overnight. Echo shows normal LV systolic function. Vitals/I&O/Wt Last Vital Signs Temp 98.2 F 01/13/23 04:00 Pulse 59 L 01/13/23 10:00 Resp 15 01/13/23 07:00 BP 131/79 01/13/23 10:00 Pulse Ox 94 01/13/23 07:00 O2 Del Method 01/13/23 04:00 01/12/23 01/13/23 01/13/23 22:59 06:59 14:59 Intake Total 2850 / 2850 Balance 2850 / 2850 Weight last 48 hrs Weight 197 lb 4.8 oz Weight 198 lb Physical Exam Narrative: GENERAL: Patient is alert, awake and oriented x3. [] NECK: No jugular vein distension. [] HEENT: No cyanosis. No icterus. No pallor. [] HEART: Regular S1 and S2. No murmur, rub or gallop. [] LUNGS: Clear to auscultate bilaterally. [] CENTRAL NERVOUS SYSTEM: Grossly nonfocal. [] EXTREMITIES: Lower extremities with no edema Data 01/13/23 00:27 01/13/23 00:27 A&P Assessment and plan (1) ST elevation myocardial infarction (STEMI): (2) Coronary artery disease: (3) Hypertension: (4) Diabetes: Plan Patient underwent successful revascularization of mid to distal RCA with ROSE x1. Continue aspirin Plavix for at least 1 year. High intensity statin therapy. Lisinopril restarted. Echocardiogram shows normal LV systolic function. Patient's HbA1c is 7. He has diabetes. As outpatient will need initiation of diabetes medicines. If stays stable by tomorrow, will be discharged. Attestations Medical Necessity Statement*: Care expected to cross 2 midnights. Patient had presented last night with ST elevation MN and underwent successful revascularization with ROSE x1. Coding Level of Care Code Acute Code for [facility] Diagnoses ST elevation myocardial infarction (STEMI) I21.3 Coronary artery disease I25.10 Hypertension I10 Diabetes E11.9
[2023-01-13] MEDS: atorvastatin 40 mg Tablet 80 MG PO (21:13)
--- NOTE | 2023-01-13 23:31 | USCV_ITS ---
Carlos Anne Age: 57 Gender: M : 1965 Exam Date: 01/13/2023 02:24 Ordering Phys: Shailesh Flores M.D ([email or web address]) Technologist: SEBASTIAN Exam Location: [facility] [place] Indication: post STEMI, hx CAD, s/p cardiac stenting tonight, previous stent 2012. BP: 131 / 80 HR: 63 Rhythm: Sinus Technical Quality: Adequate MEASUREMENTS (Male / Female) Normal Values 2D ECHO LV Diastolic Diameter PLAX 4.0 cm 4.2 - 5.9 / 3.9 - 5.3 cm LV Systolic Diameter PLAX 2.4 cm IVS Diastolic Thickness 1.3 cm 0.6 - 1.0 / 0.6 - 0.9 cm IVS Systolic Thickness 2.4 cm LVPW Diastolic Thickness 1.5 cm 0.6 - 1.0 / 0.6 - 0.9 cm LVPW Systolic Thickness 1.2 cm LVOT Diameter 1.9 cm LV Ejection Fraction 2D Teich 73.0 % LV Ejection Fraction MOD 2C 57.1 % LV Ejection Fraction 2C AL 57.1 % LA Diameter 3.9 cm LA Width 3.6 cm LA Height 4.2 cm RA Width 2.8 cm RA Height 4.1 cm Aorta at Sinotubular Diameter 3.1 cm IVC Diameter 1.6 cm M-MODE Aortic Annulus Diameter 3.0 cm LA Ao Ratio MM 1.2 MV E Point Septal Separation 0.3 cm DOPPLER AV Peak Velocity 134.0 cm/s LVOT Peak Velocity 121.0 cm/s AV Area Cont Eq vti 2.6 cm squared AV Area Cont Eq pk 2.5 cm squared MV Area PHT 3.5 cm squared Mitral E to A Ratio 0.8 MV E' Velocity 32.5 cm/s Mitral E to MV E' Ratio 7.8 Mitral E to LV E' Lateral Ratio 6.8 Mitral E to LV E' Septal Ratio 9.2 TR Peak Velocity 279.0 cm/s TR Peak Gradient 31.1 mmHg TV Peak E Velocity 38.0 cm/s Right Atrial Pressure 5.0 mmHg Pulmonary Artery Systolic Pressu 36.1 mmHg PV Peak Velocity 74.0 cm/s RV Acceleration Time 0.1 s RV Ejection Time 0.3 s RV AcT/ET 0.3 FINDINGS Left Ventricle Left ventricle is normal in size. LV systolic function is normal with EF of 50 to 55%. No regional wall motion abnormalities are seen. Grade 1 diastolic dysfunction Right Ventricle Normal in size and function Right Atrium Normal in size Left Atrium Normal in size Mitral Valve Structurally normal mitral valve. Aortic Valve Thickened aortic valve. Moderate aortic regurgitation. No significant stenosis Tricuspid Valve Mild tricuspid regurgitation. Insufficient TR jet to calculate RVSP Pulmonic Valve Not well visualized Pericardium Normal Aorta Normal in size IVC Appears to be normal CONCLUSIONS LV systolic function is normal with EF of 50 to 55%. Grade 1 diastolic dysfunction Moderate aortic regurgitation Mild tricuspid regurgitation. No comparison studies are available Shailesh Flores MD (Electronically Signed) Final Date: 13 January 2023 08:19 S
[2023-01-14] VITALS (10 sets, daily range): BP systolic 98–147; BP diastolic 69–86; PULSE 58–89; RESP 9–22; TEMP 36.3–36.6; O2SAT 95
[2023-01-14 04:00] LABS: Basophils # 0.1 10^3/uL (0.0-0.1); Eosinophils # 0.3 10^3/uL (0.0-0.8); Eosinophils % 4.2 %; Hematocrit 46.2 % (42.0-52.0); Hemoglobin 15.4 g/dL (11.7-16.6); Lymphocytes # 1.9 10^3/uL (0.8-4.8); Lymphocytes % 23.5 %; Mean Corpuscular HGB Conc 33.3 g/dL (30.0-36.0); Mean Corpuscular Hemoglobin 31.5 pg (28.0-34.0); Mean Corpuscular Volume 94.5 fl (80-94); Mean Platelet Volume 9.8 fL (7.4-10.4); Monocytes # 0.8 10^3/uL (0.2-0.9); Monocytes % 9.8 %; Neutrophils # 4.93 10^3/uL (1.8-7.7); Nucleated Red Blood Cells % 0 %; Platelet Count 219 10^3/cmm (130-400); Red Blood Count 4.89 10^6/uL (4.1-5.3); Red Cell Distribution Width 12.4 % (12.1-15.1); White Blood Count 8.1 10^3/uL (4.0-10.0)
[2023-01-14 04:17] LABS: Blood Urea Nitrogen 8 mg/dL (6-20); Calcium 8.8 mg/dL (8.5-10.5); Carbon Dioxide 26 mmol/L (22-29); Chloride 99 mmol/L (98-107); Glomerular Filtration Rate 115.8 mL/min (90-130); Glucose 129 mg/dL (65-115); Osmolality Calculated 280 mOsm/kg (285-295); Sodium 135 mmol/L (136-145)
[2023-01-14] MEDS: clopidogrel 75 mg Tablet PO (08:31)
[2023-01-14] MEDS: aspirin 81 mg EC Tablet PO (08:31)
[2023-01-14] MEDS: lisinopril 10 mg Tablet PO (08:31)
--- NOTE | 2023-01-14 10:09 | P.DS_ITS ---
Discharge Providers Date of Admission: 01/12/23 23:25 Date of Discharge: January 14, 2023 Attending Provider at Admission: Shailesh Flores M.D Attending Provider at Discharge: Shailesh Flores M.D Diagnoses at Discharge Discharge Diagnosis (1) ST elevation myocardial infarction (STEMI): Status: Inactive (2) Coronary artery disease: Status: Acute (3) Hypertension: Status: Acute (4) Diabetes: Status: Acute Reason for Visit Reason for Visit: STEMI Brief History: 57 year old male with past medical history of hypertension, coronary artery disease has presented with 4 to 5 hours of chest pain.? He says it is severe and substernal.? According to patient he has been having on and off chest discomfort episodes for the last 4 to 5 days.? However today evening was constant and severe. EKG shows inferior leads ST elevations. Cardiac open hearth furnace laborer has been emergently activated. Hospital Course Hospital Course Coronary angiogram demonstrated total thrombotic occlusion of mid to distal RCA. He underwent successful revascularization with ROSE x1. Echo showed normal LV systolic function. He was put on aspirin and Plavix. Metoprolol was added. Patient stayed in the hospital and was stable. His HbA1c is elevated and is 7 consistent with diabetes. He will establish care with primary care physician and will be put on treatment as outpatient. He was discharged home in a stable condition. Physical Exam Narrative: GENERAL: Patient is alert, awake and oriented x3. [] NECK: No jugular vein distension. [] HEENT: No cyanosis. No icterus. No pallor. [] HEART: Regular S1 and S2. No murmur, rub or gallop. [] LUNGS: Clear to auscultate bilaterally. [] CENTRAL NERVOUS SYSTEM: Grossly nonfocal. [] EXTREMITIES: Lower extremities with no edema Discharge Data Studies Completed and Pending Completed Studies During Hospitalization Category Date Time Status CV. echo complete* [id number] Routine Ultrasound 01/13/23 23:31 Completed Pending at discharge Category Date Time Status REAL ESTATE OFFICER request for service Stat Exams 01/12/23 22:14 Taken Basic Metabolic Panel AM LABS Lab 01/15/23 04:00 Ordered Complete Blood Count w/Auto AM LABS Lab 01/15/23 04:00 Ordered Laboratory Results WBC 8.1 10^3/uL (4.0-10.0) 01/14/23 03:10 RBC 4.89 10^6/uL (4.1-5.3) 01/14/23 03:10 Hgb 15.4 g/dL (11.7-16.6) 01/14/23 03:10 Hct 46.2 % (42.0-52.0) 01/14/23 03:10 MCV 94.5 fl (80-94) H 01/14/23 03:10 MCH 31.5 pg (28.0-34.0) 01/14/23 03:10 MCHC 33.3 g/dL (30.0-36.0) 01/14/23 03:10 RDW 12.4 % (12.1-15.1) 01/14/23 03:10 Plt Count 219 10^3/cmm (130-400) 01/14/23 03:10 MPV 9.8 fL (7.4-10.4) 01/14/23 03:10 Neut % (Auto) 61.0 % 01/14/23 03:10 Lymph % (Auto) 23.5 % 01/14/23 03:10 [place] % (Auto) 9.8 % 01/14/23 03:10 Eos % (Auto) 4.2 % 01/14/23 03:10 Baso % (Auto) 1.0 % 01/14/23 03:10 Neut # (Auto) 4.93 10^3/uL (1.8-7.7) 01/14/23 03:10 Lymph # (Auto) 1.9 10^3/uL (0.8-4.8) 01/14/23 03:10 [place] # (Auto) 0.8 10^3/uL (0.2-0.9) 01/14/23 03:10 Eos # (Auto) 0.3 10^3/uL (0.0-0.8) 01/14/23 03:10 Baso # (Auto) 0.1 10^3/uL (0.0-0.1) 01/14/23 03:10 Nucleated RBC % (auto) 0 % 01/14/23 03:10 Nucleated RBCs # 0.0 /100WBC 01/14/23 03:10 PT 13.30 SECONDS (12.1-14.9) 01/12/23 22:15 INR 0.98 (0.8-1.2) 01/12/23 22:15 APTT 23.7 SECONDS (23.9-36.7) L 01/12/23 22:15 Sodium 135 mmol/L (136-145) L 01/14/23 03:10 Potassium 4.0 mmol/L (3.5-5.1) 01/14/23 03:10 Chloride 99 mmol/L (98-107) 01/14/23 03:10 Carbon Dioxide 26 mmol/L (22-29) 01/14/23 03:10 Anion Gap 14.0 (5-19) 01/14/23 03:10 BUN 8 mg/dL (6-20) 01/14/23 03:10 Creatinine 0.7 mg/dL (0.7-1.2) 01/14/23 03:10 GFR Calculation 115.8 mL/min (90-130) 01/14/23 03:10 Glucose 129 mg/dL (65-115) H 01/14/23 03:10 Estimat Average Glucose 154 01/12/23 22:15 Hemoglobin A1c 7.0 % (4.0-6.0) H 01/12/23 22:15 Calculated Osmolality 280 mOsm/kg (285-295) L 01/14/23 03:10 Calcium 8.8 mg/dL (8.5-10.5) 01/14/23 03:10 Total Bilirubin 0.3 mg/dL (0.15-1.2) 01/12/23 22:15 AST 32 U/L (0-40) 01/12/23 22:15 ALT 45 U/L (0-41) H 01/12/23 22:15 Alkaline Phosphatase 56 U/L (40-130) 01/12/23 22:15 Troponin T Baseline 76 ng/L (0-15) H 01/12/23 22:15 Troponin T 120 Minute 275.9 ng/L (0-15) H 01/13/23 00:27 Delta Troponin T 199.9 ABS# (0-10) H* 01/13/23 00:27 Troponin T Hi Sens 6Hr 489.7 ng/L (0-15) H 01/13/23 03:35 Troponin T Hi Sens 6Hr Delta 413.7 ng/L (0-12) H* 01/13/23 03:35 NT-Pro-B Natriuret Pep 80 pg/mL (0-125) 01/12/23 22:15 Total Protein 6.1 g/dL (6.6-8.7) L 01/12/23 22:15 Albumin 3.4 g/dL (3.5-5.2) L 01/12/23 22:15 Globulin 2.7 g/dL (1.3-4.6) 01/12/23 22:15 Triglycerides 258 mg/dL (0-150) H 01/12/23 22:15 Cholesterol 167 mg/dL (0-200) 01/12/23 22:15 LDL Cholesterol, Calc 86 mg/dL (50-129) 01/12/23 22:15 HDL Cholesterol 29 mg/dL (60-100) L 01/12/23 22:15 LDL/HDL Ratio 2.97 RATIO (0.00-3.22) 01/12/23 22:15 Cholesterol/HDL Ratio 5.76 mg/dL (1.0-5.00) H 01/12/23 22:15 Lipase 22 U/L (13-60) 01/12/23 22:15 Vitals Last Vital Signs Temp 98 F 01/14/23 09:03 Pulse 86 01/14/23 09:03 Resp 22 H 01/14/23 09:03 BP 147/86 01/14/23 09:03 Pulse Ox 95 01/14/23 00:00 O2 Del Method 01/14/23 02:00 Discharge Plan Discharge Patient Disposition: Home Condition: Stable Prescriptions: New clopidogrel 75 mg tablet 75 mg PO DAILY Qty: 90 3RF metoprolol tartrate 25 mg tablet 12.5 mg PO BID Qty: 60 2RF atorvastatin 40 mg Tablet 80 mg PO BEDTIME Qty: 90 3RF Continued cyclobenzaprine 10 mg Tablet 10 mg PO Q8H PRN (Reason: pain) lisinopril 40 mg tablet 40 mg PO DAILY allopurinol 100 mg Tablet 100 mg PO DAILY aspirin 81 mg Tablet,Delayed Release (Dr/Ec) 81 mg PO DAILY gabapentin 300 mg capsule 300 mg PO QPM Discharge Orders: Discharge Order (Routine); Ordered 01/14/23 Ordered By: Shailesh Flores Referrals: Shailesh Flores M.D [Physician] - 2 months Fiorella Gooden FNP [Nurse Practitioner] - 7-10 days Discharge Diet: Diabetic Discharge Activity: Increase activity as tolerated Patient Instructions: Metoprolol (By mouth) (Lopressor, Toprol XL), Atorvastatin (By mouth) (Lipitor), Clopidogrel (By mouth) (Plavix), Cardiac Disease Risk Factors, Heart Attack (DC), Coronary Angioplasty (DC), Chest Pain Stoplight, Opioid Safety, Post Heart Attack Stoplight Discharge Attestations Time Spent in Discharge Care*: greater than 30 min Quality Metrics Clinical Quality Measures [ Acute Myocardial Infaction { Clinical Trial Participant: No; Contraindication to aspirin: None; Aspirin prescribed; Contraindication to statin: None; Statin prescribed; Contraindication to PCI: None; PCI performed;}] Coding Level of Care Code Acute Code for [facility] Diagnoses ST elevation myocardial infarction (STEMI) I21.3 Coronary artery disease I25.10 Hypertension I10 Diabetes E11.9
--- NOTE | 2023-01-14 10:55 | PC.NURSE ---
ivs removed whole and intact ... discharge instructions done caution on to continue take plavix on daily basis
== END 2023-01-14 10:56 | disposition home or self-care (01) | DRG 247 ==
LOC: ER 22:21 → CCL 22:24 → ICU 23:43
PROVIDERS: Emergency Medicine; Admitting Provider Internal Medicine; Emergency Provider Emergency Medicine; Visit Provider Internal Medicine
PROC: 027034Z Dilation of Coronary Artery, One Artery with Drug-eluting Intraluminal Device, Percutaneous Approach (ICD-10-PCS; principal; 2023-01-12 22:00)
PROC: 027034Z Dilation of Coronary Artery, One Artery with Drug-eluting Intraluminal Device, Percutaneous Approach (ICD-10-PCS; 2023-01-12 22:00)
DX: I21.11 ST elevation (STEMI) myocardial infarction involving right coronary artery (principal); I25.10 Atherosclerotic heart disease of native coronary artery without angina pectoris; I10 Essential (primary) hypertension; E11.9 Type 2 diabetes mellitus without complications; Z79.82 Long term (current) use of aspirin
CPT/HCPCS: 36415; 80048; 80053; 80061; 83036; 83690; 83880; 84484; 85025; 85347; 85610; 85730; 93005; 93306; 93458; 96365; 96367; 96374; 96375; 96376; 99152; 99153; 99285; C1725; C1769; C1874; C1887; C1894; C9600; J0461; J1644; J2250; J2270; J2405; J3010; J3490; J7030; Q9967

== ENCOUNTER → 2023-01-24 10:30 | Outpatient (BNVA) | payer OTHER, SELFPAY | PROVIDERS: Visit Provider Nurse Practitioner Family | DX: I25.10 Atherosclerotic heart disease of native coronary artery without angina pectoris (principal); I10 Essential (primary) hypertension | CPT/HCPCS: 80048 ==

== ENCOUNTER 2023-02-07 07:12 | Outpatient (CLI) | payer OTHER, SELFPAY ==
[2023-02-07] VITALS (35 sets, daily range): BP systolic 80–124; BP diastolic 58–81; PULSE 65–96; RESP 13–20; TEMP 36.4; O2SAT 90–97; BMI 28.3
[2023-02-07 07:43] LABS: Glucose Point of Care 118 mg/dL (70-110)
[2023-02-07 07:49] LABS: Basophils # 0.1 10^3/uL (0.0-0.1); Basophils % 1.4 %; Eosinophils # 0.3 10^3/uL (0.0-0.8); Eosinophils % 6.4 %; Hematocrit 44.1 % (42.0-52.0); Hemoglobin 15.1 g/dL (11.7-16.6); Lymphocytes % 38.4 %; Mean Corpuscular HGB Conc 34.2 g/dL (30.0-36.0); Mean Corpuscular Hemoglobin 31.2 pg (28.0-34.0); Mean Corpuscular Volume 91.1 fl (80-94); Mean Platelet Volume 9.1 fL (7.4-10.4); Monocytes # 0.5 10^3/uL (0.2-0.9); Monocytes % 9.1 %; Neutrophils % 44.3 %; Nucleated Red Blood Cells % 0 %; Platelet Count 250 10^3/cmm (130-400); Red Blood Count 4.84 10^6/uL (4.1-5.3); Red Cell Distribution Width 11.9 % (12.1-15.1); White Blood Count 5.2 10^3/uL (4.0-10.0)
[2023-02-07] MEDS: diphenhydrAMINE 50 mg Capsule PO (07:54)
[2023-02-07 08:13] LABS: Anion Gap 16.1 (5-19); Blood Urea Nitrogen 9 mg/dL (6-20); Calcium 8.7 mg/dL (8.5-10.5); Carbon Dioxide 24 mmol/L (22-29); Chloride 94 mmol/L (98-107); Glomerular Filtration Rate 138.4 mL/min (90-130); Glucose 124 mg/dL (65-115); Osmolality Calculated 270 mOsm/kg (285-295); Potassium 4.1 mmol/L (3.5-5.1); Sodium 130 mmol/L (136-145)
[2023-02-07 08:16] LABS: Creatinine Clr Calc Pharmacy 150.9848
--- NOTE | 2023-02-07 08:30 | XACV_ITS ---
Exam Room: 2 Ht: 178 cm Wt: 89 kg BSA: 2.12 m2 Gender: Male : 1965 Any Known Allergies: No known allergies Exam Priority: Routine Procedure(s): Procedure Description: Diagnostic procedure Procedure Description: PCI procedure Procedure Description: Drug Eluting Coronary Stent Procedure Description: PTCA Procedure Description: Miscellaneous Procedure Description: Angio-Seal Procedure Description: ACT Procedure Description: Coronary Angiography Diagnostic Cath Status: Elective Diagnostic Findings * INDICATION: Staged PCI of Proximal Left circumflex artery. * Left Anterior Descending has moderate luminal irregularities. * Right Coronary Artery not injected.. * Proximal Circumflex: severe, calcified 80% stenosis, FABIENNE: 3 flow. * Left Main has no significant disease. PCI Status: Elective PCI Indication: Staged PCI Interventional Findings * Procedure detail: We engaged the left main and artery with XB 3.5 guide catheter. IV heparin was administered to maintain anticoagulation. 0.014 run-through guidewire was used to cross the proximal left circumflex artery stenosis and was put in distal vessel. We predilated the stenosis with 2.5 x 12 mm semicompliant balloon. IVUS catheter could not cross the stenosis however was used to size this vessel proximally. We then used shockwave lithotripsy balloon 3.5 x 12 mm and multiple pulses of lithotripsy were delivered. This was followed with placement of 3.5 x 12 mm resolute Calder drug-eluting stent. We postdilated the proximal segment with 3.75 x 8 mm NC balloon. At this time final angiogram was performed that showed excellent stent expansion, no residual stenosis and FABIENNE-3 flow. Guidewire and guide catheter were removed. Patient left the Legal Clerk in a stable condition.. * Proximal Circumflex: 80% stenosis treated with a AB TREK 2.50X12 RX BALLOON, Shockwave C2 3.5mm x 12mm, MDT AUTUMN EUPHORA RX [id number] BALLOON, and MDRamesh R HELADIO 3.5X12 ROSE. 0% residual stenosis, FABIENNE: 3 flow. Conclusions 1. Severe 2. calcified proximal left circumflex artery stenosis s/p balloon angioplasty with shockwave intracoronary lithotripsy balloon and PCI with ROSE x1.. 3. Proximal Circumflex was treated with a Balloon, Balloon, Balloon, and Drug Eluting Stent. Recommendations * Dual antiplatelet therapy with aspirin and plavix for atleast 1 year. * High intensity statin therapy. * Outpatient cardiology follow up in 4 weeks. Interventional RX Recommendation: PCI w/o planned CABG Diagnostic RX Recommendation: PCI w/o planned CABG Anticoagulation: Heparin Pressures Phase:Rest AO : 84 / 61 ( 73 ) @ 10:27:00 AM 72 / 62 ( 68 ) @ 10:51:00 AM Clinical Evaluation EBL: 5mL-10mL Procedural Details Procedure Consent Obtained. Pre-Procedure Time Out. Identified patient by full name and date of as verbalized by the patient/guarantor. Does the consent match the physician's order: Yes. Accurate & Complete Informed Consent: Yes. Inpatient/Outpatient History & Physical on Chart: Yes. If H&P is completed, is and addenduem needed: No. Visualize and Verify Site with Patient/Guarantor: N/A. Relevant Radiology Images available: Yes. The risks, benefits, and alternatives of sedation and/or procedure were discussed by physician. The patient agrees to continue. Procedure started. [facility] Clinical Fraility Score: 3: Managing Well. Legal Clerk Indications: Stable Known CAD/Known PCI of the CX. Chest Pain Symptom Assessment: Typical Angina Symptoms. Cardiovascular Instability: No. Correct patient, site and procedure confirmed by cath team. PERRLA. Strong, equal hand ground operations supervisor bilaterally. Lungs clear x 5 lobes. IV Site on Arrival: 20 gauge in the right upper arm. IV Fluids: 0.9% NaCl at KVO. 0 mL infused prior to slab conditioner supervisor. Pre Procedural Pulses: bilateral dorsalis pedis was 1+. Pre Procedural Pulses: bilateral posterior tibial was 2+. Pre Procedural Pulses: bilateral radial was 3+. Oxygen started at 2liters/min via nasal canula. right groin was prepped with chloroprep then draped in the usual sterile fashion. left groin was prepped with chloroprep then draped in the usual sterile fashion. Physician notified. Baseline sample Acquired. HR: 74 BPM. Patient's family unavailable. Equipment: 6F - Femoral. Cardiac Cath Pack. ACOesia Manifold Kit Model BT 2000. Heparinized Saline (2 units/mL), 1000 mL bag. Kit, Micropuncture. Physician arrived. Physician scrubbed in. Immediate Pre-Procedure Time Out. Correct Patient: Yes; Correct Procedure: Yes; Correct Site: Yes; Correct Patient Position: Yes; Correct Supplies: Yes; Dried Flammable Prep: Yes; Blood Products Available: N/A;. Lidocaine 1% infiltrated to the right groin. Arterial access obtained with micropuncture set. 6 croatian XB 3.5 guide catheter was inserted over the wire. Runthrough guidewire was advanced through the guide catheter to lesion in the mid Circ. IVUS catheter in, unable to cross, removed. Inflation number : 1 A AB TREK 2.50X12 RX BALLOON was prepped and advanced across the Prox CX , then inflated to 12 KOIF for 0:18 seconds. Inflation number: 2 The AB TREK 2.50X12 RX BALLOON was reinflated across the Prox CX, to 12 KOFI for 0:16 seconds. Balloon out. ACT drawn. Results out of range high. Will re-draw. Inflation number : 3 A Shockwave C2 3.5mm x 12mm was prepped and advanced across the Prox CX , then inflated to 4 KOFI for 0:26 seconds. Inflation number: 4 The Shockwave C2 3.5mm x 12mm was reinflated across the Prox CX, to 4 KOFI for 0:21 seconds. Inflation number: 5 The Shockwave C2 3.5mm x 12mm was reinflated across the Prox CX, to 4 KOFI for 0:17 seconds. Inflation number: 6 The Shockwave C2 3.5mm x 12mm was reinflated across the Prox CX, to 4 KOFI for 0:19 seconds. Inflation number: 7 The Shockwave C2 3.5mm x 12mm was reinflated across the Prox CX, to 4 KOFI for 0:19 seconds. Inflation number: 8 The Shockwave C2 3.5mm x 12mm was reinflated across the Prox CX, to 4 KOFI for 0:19 seconds. Inflation number: 9 The Shockwave C2 3.5mm x 12mm was reinflated across the Prox CX, to 4 KOFI for 0:18 seconds. Inflation number: 10 The Shockwave C2 3.5mm x 12mm was reinflated across the Prox CX, to 4 KOFI for 0:17 seconds. Balloon out. Results checked. IVUS catheter in. ACT drawn. Results out of range-high. Heladio 3.5 x 18 stent in, unable to cross, removed intact. Guideliner in. Heladio 3.5 x 18 stent in, unable to cross, removed intact. Stent inserted to lesion in the prox Circ. Inflation Number : 11 A MDT R HELADIO 3.5X12 ROSE -Lot Number# [id number] was prepped and advanced across the Prox CX. The stent was deployed at 12 KOFI for 0:21 seconds. Exp 2025-01-26. Stent balloon out over wire. Guideliner removed. Results checked. Inflation number : 11 A MDT NC EUPHORA RX [id number] BALLOON was prepped and advanced across the Prox CX , then inflated to 18 KOFI for 0:16 seconds. Inflation number: 12 The MDT NC EUPHORA RX [id number] BALLOON was reinflated across the Prox CX, to 14 KOFI for 0:15 seconds. Balloon out. Wire out. Results checked. A Right femoral angiogram was performed to determine safe placement of closure device. A Angio-Seal VIP ([facility]) was successful obtaining hemostatsis at the Right Femoral artery insertion site. Angioseal placed without complications. No signs or symptoms of hematoma noted. Sterile dressing applied per usual sterile fashion. Lot # [id number]. Exp. 2023-08-08. Post Procedure: Pulses reassessed and unchanged. PERRLA. Strong, equal hand ground operations supervisor bilaterally. No VTE prophylaxis required. Medication's Wasted: Heparin = 1000 units. Medication's Wasted: Other = Versed 1 mg. Medication's Wasted: Other = Fentanyl 25 mcg. Total IV fluids: 308 mL. PCI Indication: CAD (without ischemic symptoms). Post-op diagnosis: Severe Prox CX disease s/p PCI with one stent. Complications: none. Responsiveness - Normal response to verbal stimuli; alert and oriented, PERRLA. Estimated blood loss: 5mL-10mL. Airway - Unaffected, no intervention required; spontaneous ventilation. Circulation: W/N/L, pulses unchanged. Nausea/Vomiting: No. Procedure completed. Patient transferred by bed to 1st floor. Vital chart was stopped. Access Site Site: Right Femoral artery Sheath Size: 6 Fr Hemostasis Method: Angio-Seal VIP ([facility]) Hemostasis Success: Successful Procedure Medications Start: 9:22 AM Stop: 9:22 AM Medication: Versed Amount: 1 mg Route: I.V. Start: 9:23 AM Stop: 9:23 AM Medication: Fentanyl Amount: 50 mcg Route: I.V. Start: 9:32 AM Stop: 9:32 AM Medication: Versed Amount: 1 mg Route: I.V. Start: 9:32 AM Stop: 9:32 AM Medication: Fentanyl Amount: 25 mcg Route: I.V. Start: 9:33 AM Stop: 9:33 AM Medication: Heparin Amount: 8000 units Route: I.V. Start: 9:33 AM Stop: 9:33 AM Medication: Versed Amount: 1 mg Route: I.V. Start: 9:56 AM Stop: 9:56 AM Medication: Heparin Amount: 1000 units Route: I.V. Start: 10:20 AM Stop: 10:20 AM Medication: Plavix Amount: 300 mg Route: P.O. I, the attending physician, have reviewed and verified all procedure medications. Yes, all medications given per verbal order History/Risk Factors Hypertension: Yes Dyslipidemia: No Peripheral Arterial Disease (PAD): No Myocardial Infarction (AR): Yes Obesity: No Renal Disease: No Tobacco Use: Never Prior Interventions PCI: Yes CABG: No Valve Surgery: No Date of PCI: 01/12/2023 Report Signatures Finalized by Shailesh Flores MD on 02/20/2023 11:41 AM
--- NOTE | 2023-02-07 09:15 | P.HPUD_ITS ---
Surgery/Procedure H&P Update DATE OF PROCEDURE: February 07, 2023 DATE H&P PERFORMED: 01/24/23 H&P UPDATE INFORMATION: I have reviewed H&P completed within last 30 days, I have examined patient prior to procedure and No changes to prior documentation PREOP DIAGNOSIS: Staged PCI of Left circumflex artery PRIMARY INDICATION FOR PROCEDURE: Staged PCI of Left circumflex artery PLANNED PROCEDURE: Operation Date: 02/07/23 08:30 Proposed Procedures p [facility] w/wo [id number] I25.10(Left) - Shailesh Flores M.D Staged PCI of left circumflex artery PATIENT REASSESSED PRIOR TO SEDATION, WITH NO CHANGE NOTED: Yes PHYSICAL EXAM: alert, oriented x 3, clear to auscultation bilaterally and regular rate & rhythm AIRWAY EVAL/ANESTHESIA PLAN: normal airway, ASA III, Local Anesthesia, Risks, benefits & alternatives of sedation and/or procedure discussed and Patient agrees to continue as planned ADDITIONAL INFORMATION: Moderate sedation
[2023-02-07] MEDS: sodium chloride 0.9% 1,000 ML 75 ML IV (10:25)
--- NOTE | 2023-02-07 10:46 | PC.NURSE ---
Upon entering room nurse holding pressure on site patient was per close device dr thacker notified and to bedside
[2023-02-07] MEDS: sodium chloride 0.9% 500 ML 999 ML IV (10:55)
--- NOTE | 2023-02-07 11:16 | ECG_ITS ---
[facility] Test Date: 2023-02-07 Pat Name: Carlos Anne Department: Room: 111 Gender: Male Intermediate Manager: : 1965 Requested By: Shailesh Flores Order Number: [id number] Prince MD: Rex Heath M.D. Measurements Intervals Point Rate: 81 P: -25 ID: [id number] QRS: -14 QRSD: 88 T: -29 QT: 369 QTc: 430 Interpretive Statements SINUS RHYTHM LOW QRS VOLTAGE [QRS DEFLECTION < 0.5/1.0 mV IN LIMB/CHEST LEADS] Compared to ECG 01/13/2023 02:08:52 Low QRS voltage now present Electronically Signed On 02-08-2023 0:18:53 CDT by Rex Heath M.D. [id number]
[2023-02-07] MEDS: atropine 0.1 mg/mL Syr 10 mL 0.5 MG IVP (13:14)
--- NOTE | 2023-02-07 13:56 | PC.NURSE ---
received from cardiac powerhouse laborer via bed at 1025.report received.pt is alert and oriented x 4 .denies pain at present.sr on monitor.pt had right femoral arterial sheath removed in powerhouse laborer with hemostasis achieved with angioseal.right femoral drsg with red drng noted..which quickly saturated drsg.drsg removed and slow ooze noted from puncture site..no hematoma noted.pressure applied and dr thacker notified and he came to assess pt.he felt it was track ooze and ordered to hold pressure for 10 min.while pressure was being applied,pt's heart rate noted to be slowing from 70's,eventually to 30's.bp dropped to 58/38.ivf's increased to 999mls/hr,pt placed in trendelenburg, 0.5 mg atropine given,while dr thacker was being notified.he came to see pt very shortly after..and hr and bp had increased.he ordered a total of 500 cc ns bolus. pt remained alert and awake during episode.oozing had stopped from right groin.
[2023-02-07] MEDS: gabapentin 300 mg Capsule PO (17:47)
--- NOTE | 2023-02-07 19:04 | PC.NURSE ---
Received bedside report from CARLOS Morrison. Patient is resting in bed. S/p C with right femoral access. Dressing to site remains c,d,i with no s/s of bleeding or hematoma formation observed. Patient denies pain or needs. Disconnected telemetry so patient could use the bathroom. No distress observed. Discussed plan for tonight. Patient verbalized complete understanding. Will continue to monitor.
[2023-02-07] MEDS: metoprolol tartrate 25 mg Tablet 12.5 MG PO (20:17)
[2023-02-07] MEDS: atorvastatin 40 mg Tablet 80 MG PO (20:17)
[2023-02-08 03:53] VITALS: BP 111/74; PULSE 50; RESP 16; O2SAT 96
[2023-02-08 04:23] VITALS: PULSE 57
[2023-02-08 04:24] LABS: Basophils # 0.1 10^3/uL (0.0-0.1); Eosinophils # 0.3 10^3/uL (0.0-0.8); Eosinophils % 4.8 %; Hematocrit 40.4 % (42.0-52.0); Hemoglobin 13.1 g/dL (11.7-16.6); Lymphocytes # 1.1 10^3/uL (0.8-4.8); Lymphocytes % 21.4 %; Mean Corpuscular HGB Conc 32.4 g/dL (30.0-36.0); Mean Corpuscular Hemoglobin 30.7 pg (28.0-34.0); Mean Corpuscular Volume 94.6 fl (80-94); Mean Platelet Volume 9.7 fL (7.4-10.4); Monocytes # 0.6 10^3/uL (0.2-0.9); Monocytes % 11.4 %; Neutrophils # 3.16 10^3/uL (1.8-7.7); Nucleated Red Blood Cells % 0 %; Platelet Count 192 10^3/cmm (130-400); Red Blood Count 4.27 10^6/uL (4.1-5.3); Red Cell Distribution Width 12.3 % (12.1-15.1); White Blood Count 5.2 10^3/uL (4.0-10.0)
[2023-02-08 04:45] LABS: Anion Gap 14.1 (5-19); Blood Urea Nitrogen 11 mg/dL (6-20); Calcium 8.5 mg/dL (8.5-10.5); Carbon Dioxide 24 mmol/L (22-29); Chloride 102 mmol/L (98-107); Glomerular Filtration Rate 115.8 mL/min (90-130); Glucose 118 mg/dL (65-115); Osmolality Calculated 282 mOsm/kg (285-295); Potassium 4.1 mmol/L (3.5-5.1); Sodium 136 mmol/L (136-145)
--- NOTE | 2023-02-08 07:08 | PM.DCS ---
Discharge Providers Date of Admission: Feb 07 2023 Date of Discharge: February 08, 2023 Attending Provider at Admission: Shailesh Flores MD Attending Provider at Discharge: Shailesh Flores M.D Reason for Visit Reason for Visit: I25.10 Brief History: 57-year-old man with past medical history of CAD who had a STEMI last month and underwent successful revascularization of RCA is here for staged PCI of proximal, heavily calcified left circumflex artery. Hospital Course Hospital Course Patient underwent successful revascularization of proximal left circumflex artery with shockwave intravascular lithotripsy balloon angioplasty and ROSE x1. He was observed overnight and was discharged home in a stable condition on dual antiplatelet therapy. Physical Exam Narrative: GENERAL: Patient is alert, awake and oriented x3. [] NECK: No jugular vein distension. [] HEENT: No cyanosis. No icterus. No pallor. [] HEART: Regular S1 and S2. No murmur, rub or gallop. [] LUNGS: Clear to auscultate bilaterally. [] CENTRAL NERVOUS SYSTEM: Grossly nonfocal. [] EXTREMITIES: Lower extremities with no edema Discharge Data Studies Completed and Pending Pending at discharge Category Date Time Status MANAGER QUANTITATIVE request for service Routine Exams 02/07/23 08:30 Taken Laboratory Results WBC 5.2 10^3/uL (4.0-10.0) 02/08/23 04:03 RBC 4.27 10^6/uL (4.1-5.3) 02/08/23 04:03 Hgb 13.1 g/dL (11.7-16.6) 02/08/23 04:03 Hct 40.4 % (42.0-52.0) L 02/08/23 04:03 MCV 94.6 fl (80-94) H 02/08/23 04:03 MCH 30.7 pg (28.0-34.0) 02/08/23 04:03 MCHC 32.4 g/dL (30.0-36.0) D 02/08/23 04:03 RDW 12.3 % (12.1-15.1) 02/08/23 04:03 Plt Count 192 10^3/cmm (130-400) 02/08/23 04:03 MPV 9.7 fL (7.4-10.4) 02/08/23 04:03 Neut % (Auto) 61.0 % 02/08/23 04:03 Lymph % (Auto) 21.4 % 02/08/23 04:03 [place] % (Auto) 11.4 % 02/08/23 04:03 Eos % (Auto) 4.8 % 02/08/23 04:03 Baso % (Auto) 1.0 % 02/08/23 04:03 Neut # (Auto) 3.16 10^3/uL (1.8-7.7) 02/08/23 04:03 Lymph # (Auto) 1.1 10^3/uL (0.8-4.8) 02/08/23 04:03 [place] # (Auto) 0.6 10^3/uL (0.2-0.9) 02/08/23 04:03 Eos # (Auto) 0.3 10^3/uL (0.0-0.8) 02/08/23 04:03 Baso # (Auto) 0.1 10^3/uL (0.0-0.1) 02/08/23 04:03 Nucleated RBC % (auto) 0 % 02/08/23 04:03 Nucleated RBCs # 0.0 /100WBC 02/08/23 04:03 Sodium 136 mmol/L (136-145) 02/08/23 04:03 Potassium 4.1 mmol/L (3.5-5.1) 02/08/23 04:03 Chloride 102 mmol/L (98-107) 02/08/23 04:03 Carbon Dioxide 24 mmol/L (22-29) 02/08/23 04:03 Anion Gap 14.1 (5-19) 02/08/23 04:03 BUN 11 mg/dL (6-20) 02/08/23 04:03 Creatinine 0.7 mg/dL (0.7-1.2) 02/08/23 04:03 GFR Calculation 115.8 mL/min (90-130) 02/08/23 04:03 Glucose 118 mg/dL (65-115) H 02/08/23 04:03 POC Glucose 118 mg/dL (70-110) H 02/07/23 07:39 Calculated Osmolality 282 mOsm/kg (285-295) L 02/08/23 04:03 Calcium 8.5 mg/dL (8.5-10.5) 02/08/23 04:03 Vitals Last Vital Signs Temp 97.5 F L 02/07/23 08:02 Pulse 57 L 02/08/23 04:23 Resp 16 02/08/23 03:53 BP 111/74 02/08/23 03:53 Pulse Ox 96 02/08/23 03:53 O2 Del Method Nasal Cannula 02/07/23 10:25 Discharge Plan Discharge Patient Disposition: Home Prescriptions: No Action allopurinol 100 mg tablet 100 mg PO DAILY Qty: 90 1RF cyclobenzaprine 10 mg Tablet 10 mg PO Q8H PRN (Reason: pain) lisinopril 40 mg tablet 40 mg PO DAILY aspirin 81 mg Tablet,Delayed Release (Dr/Ec) 81 mg PO DAILY gabapentin 300 mg capsule 300 mg PO QPM clopidogrel 75 mg tablet 75 mg PO DAILY Qty: 90 3RF metoprolol tartrate 25 mg tablet 12.5 mg PO BID Qty: 60 2RF atorvastatin 40 mg Tablet 80 mg PO BEDTIME Qty: 90 3RF Discharge Orders: Discharge Order (Routine); Ordered 02/08/23 Ordered By: Shailesh Flores Referrals: Shailesh Flores M.D [Physician] - 2 months (During your follow-up with Fiorella Gooden you will be scheduled with Dr. Sepulveda. ) Fiorella Gooden FNP [Nurse Practitioner] - 02/20/23 9:15 am (Please follow-up with Fiorella Gooden on Monday, February 20 at 9:15A.M. If you have any questions or need to reschedule. Please call ) Eric Dorado MD [Physician] - 02/10/23 10:30 am Diet: Diabetic Activity: Increase activity as tolerated Patient Instructions: Coronary Artery Disease (DC), Coronary Angioplasty (DC), Hypertension (DC), Post Angiogram Home Care Instructions Stand Alone Forms: Work/School Release Discharge Date/Time: 02/08/23 09:44 Discharge Attestations Time Spent in Discharge Care*: greater than 30 min Quality Metrics Clinical Quality Measures [ No reported AMI, CVA or VTE this stay] Coding Level of Care Code Acute Code for [facility] Diagnoses
[2023-02-08 07:14] VITALS: BP 122/70; PULSE 59; RESP 15; TEMP 36.4; O2SAT 96
[2023-02-08 08:20] VITALS: BP 122/70; PULSE 59; RESP 15; TEMP 36.4; O2SAT 96
[2023-02-08] MEDS: aspirin 81 mg EC Tablet PO (08:45)
[2023-02-08] MEDS: clopidogrel 75 mg Tablet PO (08:45)
[2023-02-08] MEDS: allopurinol 100 mg Tablet PO (08:45)
[2023-02-08] MEDS: metoprolol tartrate 25 mg Tablet 12.5 MG PO (08:47)
[2023-02-08 08:49] VITALS: PULSE 80; RESP 16; O2SAT 95
--- NOTE | 2023-02-08 09:42 | PC.NURSE ---
discharge instructions given and explained.pt verb understanding of instructions.discharged via w/c to exit.sister to drive pt home
== END 2023-02-08 09:44 | disposition home or self-care (01) ==
LOC: CCL 07:20 → CSU 10:28
PROVIDERS: Visit Provider Internal Medicine
DX: I25.10 Atherosclerotic heart disease of native coronary artery without angina pectoris (principal); R94.31 Abnormal electrocardiogram [ECG] [EKG]; Z79.02 Long term (current) use of antithrombotics/antiplatelets; Z79.82 Long term (current) use of aspirin; I10 Essential (primary) hypertension
CPT/HCPCS: 36415; 36416; 80048; 82962; 85025; 85347; 92978; 93005; 96365; 96376; 99152; 99153; C1725; C1753; C1760; C1769; C1874; C1887; C1894; C9600; G0269; J0461; J1644; J2250; J3010; J7030; J7040; Q0163; Q9967

== ENCOUNTER 2023-05-31 08:02 | Emergency (ER) | payer OTHER, SELFPAY ==
--- NOTE | 2023-05-31 08:09 | XR_ITS ---
WS: [id number] EXAMINATION: XR chest 1V portable [id number] REASON FOR EXAM: chest pain COMPARISON: 01/07/2021 ORDER DATE: 05/31/2023 8:11 AM TECHNIQUE: A single, portable frontal chest x-ray was obtained. X-RAY FINDINGS: The lungs are clear. Pleural spaces are clear. No pleural effusions or pneumothorax. Cardiomediastinal silhouette is normal. No evidence for pulmonary edema. Soft tissue and osseous structures are unremarkable. No tubes or lines are present. IMPRESSION: Unremarkable frontal portable chest x-ray.
[2023-05-31 08:14] VITALS: BP 206/115; PULSE 69; RESP 16; TEMP 36.7; O2SAT 96; BMI 27.9
--- NOTE | 2023-05-31 08:19 | ECG_ITS ---
[facility] Test Date: 2023-05-31 Pat Name: Carlos Anne Department: Room: Gender: Male Hvac/R Service Technician: : 1965 Requested By: Goran Albert Order Number: [id number] Prince MD: Rex Heath M.D. Measurements Intervals [place] Rate: 68 P: 29 ME: 195 QRS: 35 QRSD: 93 T: 42 QT: 380 QTc: 405 Interpretive Statements SINUS RHYTHM POSSIBLE LEFT ATRIAL ENLARGEMENT [-0.1mV P-WAVE IN V1/V2] Compared to ECG 02/07/2023 11:16:34 No significant changes Electronically Signed On 05-31-2023 20:02:37 CDT by Rex Heath M.D. [id number]
[2023-05-31 08:22] LABS: Basophils # 0.1 10^3/uL (0.0-0.1); Basophils % 0.7 %; Eosinophils # 0.3 10^3/uL (0.0-0.8); Eosinophils % 3.8 %; Hematocrit 49.6 % (37-53); Lymphocytes # 1.6 10^3/uL (0.8-4.8); Lymphocytes % 22.3 %; Mean Corpuscular HGB Conc 34.1 g/dL (30-55); Mean Corpuscular Hemoglobin 31.5 pg (27-33); Mean Corpuscular Volume 92.4 fl (82-101); Mean Platelet Volume 9.5 fL (7.4-10.4); Monocytes # 0.5 10^3/uL (0.2-0.9); Neutrophils # 4.81 10^3/uL (1.8-7.7); Neutrophils % 65.9 %; Nucleated Red Blood Cells % 0 %; Platelet Count 205 10^3/cmm (157-399); Red Blood Count 5.37 10^6/uL (3.85-5.65); Red Cell Distribution Width 12.4 % (12.1-15.1)
[2023-05-31] MEDS: aspirin 81 mg Chew Tablet 324 MG PO (08:29)
--- NOTE | 2023-05-31 08:37 | PC.PHAR ---
pt states he takes care of his own medications-pt states he hasnt taken lisinopril 40mg daily for months states he has been out ext shows last filled 11/17/22 90d/s-pt states he picked up metformin er 500mg bid filled 02/10/23 90d/s but states he never took it and doesnt plan on taking it -
[2023-05-31 08:39] LABS: Troponin(5th) Baseline 10 ng/L (0-15)
[2023-05-31 08:40] LABS: Alanine Aminotransferase 48 U/L (0-41); Albumin Level 4.3 g/dL (3.5-5.2); Alkaline Phosphatase 92 U/L (40-130); Anion Gap 16.1 (5-19); Aspartate Amino Transferase 39 U/L (0-40); Blood Urea Nitrogen 6 mg/dL (6-20); Calcium 8.8 mg/dL (8.5-10.5); Carbon Dioxide 22 mmol/L (22-29); Chloride 103 mmol/L (98-107); Globulin 2.7 g/dL (1.3-4.6); Glomerular Filtration Rate 115.4 mL/min (90-130); Glucose 248 mg/dL (65-115); Osmolality Calculated 290 mOsm/kg (285-295); Potassium 4.1 mmol/L (3.5-5.1); Sodium 137 mmol/L (136-145); Total Bilirubin 0.6 mg/dL (0.15-1.2)
[2023-05-31 08:41] LABS: Alcohol Level < 10 mg/dL (0-10)
[2023-05-31] MEDS: hyDRALAzine 20 mg/mL INJ 1 mL 10 MG IVP (08:45)
[2023-05-31] MEDS: lisinopril 20 mg Tablet PO (08:45)
[2023-05-31] MEDS: amlodipine 5 mg Tablet PO (08:45)
--- NOTE | 2023-05-31 09:04 | ED_ITS ---
HPI - Chest Pain General: Chief Complaint: Chest Pain Stated Complaint: chest pain, shoulder pain, right arm numb Time Seen by Provider: 05/31/23 08:06 Source: patient Mode of arrival: ambulatory History of Present Illness: 58-year-old male with a known history of coronary artery disease complaining of left-sided chest pain radiating to his left shoulder and arm. He he states he is thinks he has a rotator cuff issue. Earlier this year he had a STEMI and had the distal RCA lesion and then went back a month later in a planned staged revascularization and the stent was placed in the circumflex. He has noticed that with movement or lifting things the pain is worse better when he rests he is not having any pain at this time. He has been out of his lisinopril for last couple of days. His blood pressure is markedly elevated when he arrives here. He states he has been taking his clopidogrel regularly. MD complaint: chest pain Pertinent past history: coronary artery disease Onset (ago): day(s) (1) Onset: during rest Pain location: left chest Pain radiation: left arm and left shoulder Quality: sharp Relieving factors: nothing Exacerbating factors: movement Associated symptoms: Deny abdominal pain, dyspnea, fever(s), nausea or vomiting Review of Systems Const: Denies: fever(s), chills, body aches, change in appetite, fatigue or malaise ENMT: Denies: throat pain, ear or mastoid pain, nasal discharge or nasal congestion Card: Denies: chest pain, edema, dyspnea on exertion or orthopnea Resp: Denies: dyspnea, productive cough or non-productive cough GI: Denies: abdominal pain, nausea, vomiting, hematemesis, coffee ground emesis, diarrhea, constipation, bloating, hematochezia or melena : Denies: flank pain, dysuria, urinary frequency or urinary urgency Skin/Breast: Denies: rash or pruritus PFSH ED PFSH: Medical History Coronary artery disease History of fracture of right ankle ST elevation myocardial infarction (STEMI) Surgical History History of umbilical hernia repair x7 Family History Father Hypertension Diabetes Cancer lung Brother Myocardial infarction Hypertension Diabetes Mother Myocardial infarction Hypertension Diabetes Sister Cancer Breast metastasized Grandmother Cancer Maternal-Lung Grandfather Cancer Maternal/Paternal-Lung Other CAD (coronary artery disease) Lung disease Denies family history of Clotting disorder Dementia Hyperlipidemia Psychiatric illness Chronic kidney disease (CKD) Anesthesia complication Bleeding disorder Stroke Social History Smoking and tobacco status: never smoked Alcohol intake: current Alcohol intake frequency: 3 or more drinks per day Alcohol type: beer Substance/Drug Use: never Lives independently: Yes Marital status: Number of children: 1 Current occupational status: employed Current occupation: [employer] Inspector Special pati needs: No Agree to transfusion: Yes Physical Exam Const: GENERAL APPEARANCE: cooperative and comfortable ORIENTATION/CONSCIOUSNESS: Yes awake, Yes oriented to person, Yes oriented to place and Yes oriented to time HENMT: COMMON NORMALS: normocephalic, atraumatic and hearing grossly normal bilaterally HEAD & SCALP: normocephalic and atraumatic Resp: COMMON NORMALS: normal respiratory effort, No retractions, No use of accessory muscles and clear to auscultation bilaterally AUSCULTATION: clear to auscultation bilaterally Cardio: COMMON NORMALS: regular rate, regular rhythm and No murmurs present (Cardio) RATE: regular rate RHYTHM: regular rhythm GI: COMMON NORMALS: Soft to palpation and No hepatosplenomegaly present AUSCULTATION: Yes normoactive bowel sounds PALPATION: Yes Soft to palpation, No Tenderness to palpation present (GI), No Guarding due to palpation present (GI) and Yes No hepatosplenomegaly present Extremity: COMMON NORMALS: normal to inspection, capillary refill normal, no clubbing, cyanosis or edema, no calf tenderness and no pedal edema OTHER: Range of motion in the left shoulder pain with abduction and with external rotation Neuro: SENSORIUM/ORIENTATION: Yes oriented to person, Yes oriented to place and Yes oriented to time Skin: COMMON NORMALS: no rashes or lesions noted GENERAL SKIN EXAM: no rashes or lesions noted Course Vital Signs: Vital signs: Vital Signs Temperature 98.1 F 05/31/23 08:14 Pulse Rate 79 05/31/23 12:10 Respiratory Rate 15 05/31/23 12:10 Blood Pressure 141/105 05/31/23 12:10 Pulse Oximetry 94 08/23/23 12:10 Oxygen Delivery Me thod Room Air 05/31/23 12:10 MDM - Chest Pain Medical Decision Making EKG and cardiac enzymes negative no signs of any acute coronary syndrome. R eviewed his previous angiography. Patient had no other suspect lesions he had a staged reperfusion of the 2 lesions where there were stents placed. His pain is reproducible with motion of the shoulder consistent with rotator cuff. Given the recent angiogram and exam findings here along with normal cardiac enzymes and EKG we can discharge the patient home and have him follow-up with cardiology and primary care. Return if has worsening symptoms. Reviewed with primary care about possible further evaluation or interventions for his shoulder. Medical Records I reviewed the patient's medical records. Lab Data I reviewed the patient's lab results. 05/31/23 08:15 05/31/23 08:15 Laboratory Results WBC 7.30 10^3/uL (3.29-11.43) 05/31/23 08:15 RBC 5.37 10^6/uL (3.85-5.65) 05/31/23 08:15 Hgb 16.90 g/dL (11.27-16.99) 05/31/23 08:15 Hct 49.6 % (37-53) 05/31/23 08:15 MCV 92.4 fl (82-101) 05/31/23 08:15 MCH 31.5 pg (27-33) 05/31/23 08:15 MCHC 34.1 g/dL (30-55) 05/31/23 08:15 RDW 12.4 % (12.1-15.1) 05/31/23 08:15 Plt Count 205 10^3/cmm (157-399) 05/31/23 08:15 MPV 9.5 fL (7.4-10.4) 05/31/23 08:15 Neut % (Auto) 65.9 % 05/31/23 08:15 Lymph % (Auto) 22.3 % 05/31/23 08:15 [place] % (Auto) 7.0 % 05/31/23 08:15 Eos % (Auto) 3.8 % 05/31/23 08:15 Baso % (Auto) 0.7 % 05/31/23 08:15 Neut # (Auto) 4.81 10^3/uL (1.8-7.7) 05/31/23 08:15 Lymph # (Auto) 1.6 10^3/uL (0.8-4.8) 05/31/23 08:15 [place] # (Auto) 0.5 10^3/uL (0.2-0.9) 05/31/23 08:15 Eos # (Auto) 0.3 10^3/uL (0.0-0.8) 05/31/23 08:15 Baso # (Auto) 0.1 10^3/uL (0.0-0.1) 05/31/23 08:15 Nucleated RBC % (auto) 0 % 05/31/23 08:15 Nucleated RBCs # 0.0 /100WBC 05/31/23 08:15 Sodium 137 mmol/L (136-145) 05/31/23 08:15 Potassium 4.1 mmol/L (3.5-5.1) 05/31/23 08:15 Chloride 103 mmol/L (98-107) 05/31/23 08:15 Carbon Dioxide 22 mmol/L (22-29) 05/31/23 08:15 Anion Gap 16.1 (5-19) 05/31/23 08:15 BUN 6 mg/dL (6-20) 05/31/23 08:15 Creatinine 0.7 mg/dL (0.7-1.2) 05/31/23 08:15 GFR Calculation 115.4 mL/min (90-130) 05/31/23 08:15 Glucose 248 mg/dL (65-115) H 05/31/23 08:15 Calculated Osmolality 290 mOsm/kg (285-295) 05/31/23 08:15 Calcium 8.8 mg/dL (8.5-10.5) 05/31/23 08:15 Total Bilirubin 0.6 mg/dL (0.15-1.2) 05/31/23 08:15 AST 39 U/L (0-40) 05/31/23 08:15 ALT 48 U/L (0-41) H 05/31/23 08:15 Alkaline Phosphatase 92 U/L (40-130) 05/31/23 08:15 Troponin T Baseline 10 ng/L (0-15) 05/31/23 08:15 Troponin T 120 Minute 9.17 ng/L (0-15) 05/31/23 10:10 Delta Troponin T -0.83 ABS# (0-10) L 05/31/23 10:10 Total Protein 7.0 g/dL (6.6-8.7) 05/31/23 08:15 Albumin 4.3 g/dL (3.5-5.2) 05/31/23 08:15 Globulin 2.7 g/dL (1.3-4.6) 05/31/23 08:15 Ethyl Alcohol < 10 mg/dL (0-10) 05/31/23 08:15 Discharge Plan Discharge Patient Disposition: Home Clinical Impression: Atypical chest pain, Rotator cuff arthropathy of left shoulder Condition: Stable Prescriptions: New diclofenac sodium 75 mg tablet,delayed release (DR/EC) 75 mg PO Q12H PRN (Reason: pain) Qty: 20 0RF No Action aspirin 81 mg Tablet,Delayed Release (Dr/Ec) 81 mg PO QAM metoprolol tartrate 25 mg tablet 12.5 mg PO BID Qty: 60 2RF atorvastatin 40 mg Tablet 80 mg PO BEDTIME Qty: 90 3RF clopidogrel 75 mg tablet 75 mg PO QAM allopurinol 100 mg tablet 100 mg PO QAM Discharge Orders: Discharge ED (Routine); Ordered 05/31/23 Ordered By: Goran Chaudhari Referrals: Eric Dorado MD [Primary Care Provider] - Discharge Diet: Usual diet Discharge Activity: Limit activity as instructed Patient Instructions: Opioid Safety, Pain Management Activity Restrictions/Additional Instructions: Follow-up with your primary care doctor within a week you have any recurrence or changes symptoms return to the emergency room continue all previously prescribed medications. You can use the diclofenac given as needed for shoulder pain. Stand Alone Forms: Work/School Release Coding Level of Care Code ED Rivet Bucker for Jessica Roberts
[2023-05-31 09:22] VITALS: BP 158/91; PULSE 72; RESP 15; O2SAT 96
--- NOTE | 2023-05-31 10:09 | ECG_ITS ---
[facility] Test Date: 2023-05-31 Pat Name: Carlos Anne Department: Room: Gender: Male Reimbursement Manager: : 1965 Requested By: Goran Albert Order Number: [id number] Prince MD: Rex Heath M.D. Measurements Intervals [place] Rate: 73 P: 32 IN: 182 QRS: 40 QRSD: 87 T: 47 QT: 372 QTc: 412 Interpretive Statements SINUS RHYTHM POSSIBLE LEFT ATRIAL ENLARGEMENT [-0.1mV P-WAVE IN V1/V2] Compared to ECG 05/31/2023 08:19:17 No significant changes Electronically Signed On 05-31-2023 20:41:44 CDT by Rex Heath M.D. [id number]
[2023-05-31 10:13] VITALS: BP 155/94; PULSE 75; RESP 18; O2SAT 94
[2023-05-31 10:42] LABS: Troponin 5 2HR 9.17 ng/L (0-15); Troponin 5 2HR Delta -0.83 ABS# (0-10)
--- NOTE | 2023-05-31 12:09 | PC.NURSE ---
Patient has been on his call light asking for a status update. I have answered the call light and checked his vitals when I have answered his call light.
[2023-05-31 12:10] VITALS: BP 141/105; PULSE 79; RESP 15; O2SAT 94
== END 2023-05-31 13:05 | disposition home or self-care (01) ==
PROVIDERS: Emergency Provider Family Medicine; PCP Family Medicine
DX: R07.89 Other chest pain (principal); M12.812 Other specific arthropathies, not elsewhere classified, left shoulder; Z79.82 Long term (current) use of aspirin; Z79.02 Long term (current) use of antithrombotics/antiplatelets; I25.10 Atherosclerotic heart disease of native coronary artery without angina pectoris; I25.2 Old myocardial infarction
CPT/HCPCS: 71045; 80053; 80307; 84484; 85025; 93005; 96374; 99285; J0360

== ENCOUNTER → 2023-07-24 09:51 | Outpatient (BNVA) | payer SELFPAY | PROVIDERS: PCP Family Medicine; Visit Provider Nurse Practitioner Family | DX: M19.012 Primary osteoarthritis, left shoulder (principal); M25.511 Pain in right shoulder; M25.512 Pain in left shoulder; I16.0 Hypertensive urgency | CPT/HCPCS: 73030 ==

== ENCOUNTER → 2023-11-09 09:07 | Outpatient (BNVA) | payer OTHER, SELFPAY | PROVIDERS: PCP Family Medicine; Visit Provider Family Medicine | DX: I25.10 Atherosclerotic heart disease of native coronary artery without angina pectoris (principal); E11.9 Type 2 diabetes mellitus without complications; Z00.00 Encounter for general adult medical examination without abnormal findings; M19.011 Primary osteoarthritis, right shoulder; M19.012 Primary osteoarthritis, left shoulder; I10 Essential (primary) hypertension; M10.9 Gout, unspecified; M54.50 Low back pain, unspecified; F10.20 Alcohol dependence, uncomplicated; Z71.41 Alcohol abuse counseling and surveillance of alcoholic | CPT/HCPCS: 80053; 80061; 83036 ==

== ENCOUNTER → 2024-02-12 08:55 | Outpatient (BNVA) | payer OTHER, SELFPAY | PROVIDERS: PCP Family Medicine; Visit Provider Podiatrist Foot & Ankle Surgery | DX: M79.671 Pain in right foot (principal); M79.89 Other specified soft tissue disorders | CPT/HCPCS: 73630 ==

== ENCOUNTER 2024-03-11 09:56 | Outpatient (CLI) | payer OTHER, SELFPAY ==
--- NOTE | 2024-03-11 10:15 | MR_ITS ---
WS: [id number] EXAMINATION: MR ankle RT wo/w con [id number] ORDER DATE: 03/11/2024 10:15 AM COMPARISON: None. HISTORY: Soft tissue mass CONTRAST: None. TECHNIQUE: Axial proton density fat sat, axial T1, sagittal proton density, sagittal STIR, coronal T2 fat sat, and coronal T1 sequences performed. After contrast, axial T1 fat sat, coronal T1 fat sat, and sagittal T1 fat sat were performed. FINDINGS: Palpable marker overlying the medial malleolus in the area of concern. Well-circumscribed thin-walled T2 hyperintense cystic lesion without gadolinium enhancement. This measures approximately 2.9 x 1.4 x 2.3 cm. This most likely represents a ganglion cyst with a few septations. Suggestion of a small ne ck extending to the adjacent talonavicular joint Distal Achilles is normal in appearance. Normal bone marrow signal in the calcaneus. Postoperative ch anges plate and screw fixation distal fibula and lateral malleolus. Tenosynovitis along the peroneal tendon sheath. Trace tenosynovitis involving the extensor compartment tendons. Normal visualized flex or compartment tendons. Some images degraded due to hardware artifact. Normal bone marrow signal in t he talus. Subchondral cystic change involving the lateral malleolus. MR/MR ankle RT wo/w con [id number] IMPRESSION: Well-circumscribed nonenhancing cystic lesion in the area of concern overlying the medial malleolus measuring 2.9 x 1.4 x 2.3 cm most like representing a gang lion cyst.
[2024-03-11] MEDS: gadobenate dimeglumine 20 mL vial IV (10:53)
== END 2024-03-11 09:57 | disposition home or self-care (01) ==
LOC: RAD 09:56
PROVIDERS: PCP Family Medicine; Visit Provider Podiatrist Foot & Ankle Surgery
DX: M79.89 Other specified soft tissue disorders (principal); M85.671 Other cyst of bone, right ankle and foot; Z96.7 Presence of other bone and tendon implants; M65.871 Other synovitis and tenosynovitis, right ankle and foot
CPT/HCPCS: 73723; A9577

== ENCOUNTER → 2024-12-06 09:25 | Outpatient (BNVA) | payer SELFPAY | PROVIDERS: PCP Family Medicine; Visit Provider Nurse Practitioner | DX: M25.561 Pain in right knee (principal); M65.261 Calcific tendinitis, right lower leg | CPT/HCPCS: 73562 ==